=== PATIENT | male | born 1950 | race Caucasian/White ===

== ENCOUNTER → 2017-11-13 14:41 | Outpatient (POV) | payer MEDICARE, SELFPAY ==
[2017-11-13 15:10] VITALS: BP 172/101; PULSE 88; RESP 20; TEMP 36.7; O2SAT 97
--- NOTE | 2017-11-14 08:43 | HMH.PMCON ---
Assessment and Plan (1) Piriformis syndrome Current visit: Yes Status: Chronic Category: Medical Code(s): G57.00 - Lesion of sciatic nerve, unspecified lower limb (2) Sacroiliitis Current visit: Yes Status: Chronic Category: Medical Code(s): M46.1 - Sacroiliitis, not elsewhere classified (3) Degenerative joint disease (DJD) of lumbar spine Current visit: Yes Status: Chronic Category: Medical Code(s): M47.816 - Spondylosis without myelopathy or radiculopathy, lumbar region - Assessment and plan all Dx Assessment and Plan for all problems:: We will start off with a left SI and left piriformis injection. I believe that this may give the patient some good relief given his symptomology. Patient is not on any anticoagulation. Patient's tried and failed physical therapy, NSAIDs. Patient is also continuing stretching exercises at home. Patient wants to continue to be as functional as possible. I will follow-up with this patient after his injections. This note was dictated using voice recognition software and may contain errors or omissions HPI - Data of Consult Consult date: 11/13/17 Requesting Physician: Judith Jaime APRN Primary Care Provider: Adrien Ponce MD Family Provider: Adrien Ponce MD - Consult Narrative Reason for consult: Sciatica History of present illness: Mr. Shaw is a 67 year old male who presents for consultation in regards to his sciatica. Patient states had a low back injury in 1979 which precipitated intermittent pain of his lower left back and radiation down the left leg. Patient states lifting and bending make it worse while rest decreases his pain. Patient has been seen by neurosurgery previously. Patient does have an S1 impingement noted on his MRI. Patient was deemed not a surgical candidate. Patient has done physical therapy with minimal relief. Patient continues to do stretching. Patient has tried NSAIDs such as ibuprofen and muscle relaxers such as tizanidine. Patient rates his pain a 2 out of 10 today. Patient states that he is feeling fairly well today. He states that his pain is intermittent and sharp. Patient is interested in injective therapies to help with control of his pain. CC: Judith Jaime APRN [facility] History I have reviewed the patient's past medical history: Yes Medical History: Reports:: Hyperlipidemia, Hypertension Other Medical History: Reports: Arthritis Laterality Cases: Bilateral: Tonsillectomy - *Social History Smoking Status: Former smoker Tobacco Type: cigarettes Alcohol Intake: never Alcohol Intake Frequency:: a few times a week Substance Use Type: denies use Occupational Status: retired Housing: house Household Members: spouse - Psychiatric History Expresses thoughts of harming self/others: None Suicide Plan Description: No Plan *Family Hx:: Coronary Artery Disease Review of Systems - Review of Systems ROS General: no recent weight change, no fever, no sleep disturbances Respiratory: no cough, no shortness of air, no recurring pulmonary infections Cardiovascular/Peripheral Vascular: No chest pain, No palpitations, no edema, no shortness of breath. Gastrointestinal: no incontinence, normal bowel movements reported Genitourinary: no incontinence Musculoskeletal: Left SI joint pain, left leg pain Psychiatric: normal mood/ affect, [denies depression], [denies anxiety] Neurological: [denies weakness in extremities], [denies balance issues] Meds Home Medications Medication Instructions Recorded Confirmed Type aspirin 81 mg tablet,delayed 81 mg PO ONCE 08/07/17 History release diltiazem ER (XR/XT) 240 mg 240 mg PO ONCE 08/28/17 History capsule,extended release 24 hr, controlled fexofenadine 180 mg tablet 180 mg PO Q24H 08/28/17 History fluticasone 50 mcg/actuation nasal 50 mcg INTRANASAL ONCE 08/28/17 History spray,suspension losartan 100 1 tab PO ONCE 08/28/17 History mg-
--- NOTE | 2017-11-14 08:46 | P.CONS_ITS ---
Assessment and Plan (1) Piriformis syndrome Current visit: Yes Status: Chronic Category: Medical Code(s): G57.00 - Lesion of sciatic nerve, unspecified lower limb (2) Sacroiliitis Current visit: Yes Status: Chronic Category: Medical Code(s): M46.1 - Sacroiliitis, not elsewhere classified (3) Degenerative joint disease (DJD) of lumbar spine Current visit: Yes Status: Chronic Category: Medical Code(s): M47.816 - Spondylosis without myelopathy or radiculopathy, lumbar region - Assessment and plan all Dx Assessment and Plan for all problems:: We will start off with a left SI and left piriformis injection. I believe that this may give the patient some good relief given his symptomology. Patient is not on any anticoagulation. Patient's tried and failed physical therapy, NSAIDs. Patient is also continuing stretching exercises at home. Patient wants to continue to be as functional as possible. I will follow-up with this patient after his injections. This note was dictated using voice recognition software and may contain errors or omissions HPI - Data of Consult Consult date: 11/13/17 Requesting Physician: Judith Jaime APRN Primary Care Provider: Adrien Ponce MD Family Provider: Adrien Ponce MD - Consult Narrative Reason for consult: Sciatica History of present illness: Mr. Shaw is a 67 year old male who presents for consultation in regards to his sciatica. Patient states had a low back injury in 1979 which precipitated intermittent pain of his lower left back and radiation down the left leg. Patient states lifting and bending make it worse while rest decreases his pain. Patient has been seen by neurosurgery previously. Patient does have an S1 impingement noted on his MRI. Patient was deemed not a surgical candidate. Patient has done physical therapy with minimal relief. Patient continues to do stretching. Patient has tried NSAIDs such as ibuprofen and muscle relaxers such as tizanidine. Patient rates his pain a 2 out of 10 today. Patient states that he is feeling fairly well today. He states that his pain is intermittent and sharp. Patient is interested in injective therapies to help with control of his pain. CC: Judith Jaime APRN [facility] History I have reviewed the patient's past medical history: Yes Medical History: Reports:: Hyperlipidemia, Hypertension Other Medical History: Reports: Arthritis Laterality Cases: Bilateral: Tonsillectomy - *Social History Smoking Status: Former smoker Tobacco Type: cigarettes Alcohol Intake: never Alcohol Intake Frequency:: a few times a week Substance Use Type: denies use Occupational Status: retired Housing: house Household Members: spouse - Psychiatric History Expresses thoughts of harming self/others: None Suicide Plan Description: No Plan *Family Hx:: Coronary Artery Disease Review of Systems - Review of Systems ROS General: no recent weight change, no fever, no sleep disturbances Respiratory: no cough, no shortness of air, no recurring pulmonary infections Cardiovascular/Peripheral Vascular: No chest pain, No palpitations, no edema, no shortness of breath. Gastrointestinal: no incontinence, normal bowel movements reported Genitourinary: no incontinence Musculoskeletal: Left SI joint pain, left leg pain Psychiatric: normal mood/ affect, [denies depression], [denies anxiety] Neurological: [denies weakness in extremities], [denies balance issues] Meds Home Medications Medication Ins
== END ==
PROVIDERS: Family Provider Family Medicine; PCP Family Medicine; Visit Provider Clinical Nurse Specialist Family Health
DX: M46.1 Sacroiliitis, not elsewhere classified (principal); M47.816 Spondylosis without myelopathy or radiculopathy, lumbar region; G57.00 Lesion of sciatic nerve, unspecified lower limb
CPT/HCPCS: 99202; 99212

== ENCOUNTER → 2018-01-09 09:04 | Outpatient (POV) | payer MEDICARE, SELFPAY ==
[2018-01-09 09:20] VITALS: BP 153/79; PULSE 59; RESP 18; O2SAT 97; BMI 29.0
--- NOTE | 2018-01-09 09:44 | P.CONS_ITS ---
[facility] Pain Management SOAP Note Subjective:: Patient is a pleasant 67-year-old white male left-sided hip pain. Patient is following up after left SI joint injection and left piriformis syndrome. Patient states he is pain is a 0 out of 10 today. Patient has done extremely well after this injection. He rates 90-100% pain relief of his symptoms. Patient is much more functional. ROS General: no recent weight change, no fever, no sleep disturbances Respiratory: no cough, no shortness of air, no recurring pulmonary infections Cardiovascular/Peripheral Vascular: No chest pain, No palpitations, no edema, no shortness of breath. Gastrointestinal: no incontinence, normal bowel movements reported Genitourinary: no incontinence Musculoskeletal: Left hip Psychiatric: normal mood/ affect Neurological: [denies weakness in extremities], [denies balance issues] Objective:: Physical Exam General: Alert and oriented x3, no acute distress, pleasant and cooperative, [ on room air] Lungs: Resps E/U, Symmetrical chest expansion, \ Eyes: PERRL Musculoskeletal: Flexion and extension of lumbar spine somewhat guarded secondary to pain, deep tendon reflexes normal, strength in upper and lower extremities [5/5], normal gait noted Neurological: speech clear, canvassing manager equal, no gross sensory deficits Assessment:: Sacroiliitis, piriformis syndrome Plan:: We will follow-up with this patient on an as-needed basis. Patient is going to continue his anti-inflammatory regimen and stretching therapies. This note was dictated using voice recognition software and may contain errors or omissions
== END ==
PROVIDERS: Family Provider Family Medicine; PCP Family Medicine; Visit Provider Clinical Nurse Specialist Family Health
DX: M46.1 Sacroiliitis, not elsewhere classified (principal)
CPT/HCPCS: 99212

== ENCOUNTER → 2018-03-16 09:28 | Outpatient (CLI) | payer MEDICARE, SELFPAY ==
--- NOTE | 2018-03-16 09:49 | FL_ITS ---
EXAM: Barium swallow/esophagram. INDICATION: Patient with myasthenia gravis with dysphagia ITS.REASON: dysphagia ORDERING PHYSICIAN: Judy Peralta MD PATIENT AGE: 68 years COMPARISON: None TECHNIQUE: In the upright position the patient was observed to swallow barium in both the AP and lateral view. The cervical esophagus was examined under fluoroscopy with images obtained. The patient was then placed prone in the right anterior oblique position and was observed to swallow barium with Valsalva technique . Incidental note made of moderate carotid artery calcifications. FLUOROSCOPY TIME: 50 seconds FINDINGS: There was no evidence of aspiration. There was normal peristalsis. No filling defects or mucosal abnormalities. No masses or strictures. There is some minimal indentation upon the posterior aspect of the cervical esophagus at the C5-C6 and C6 7 level from endplate osteophytes IMPRESSION: 1. Mild indentation on the posterior aspect of the cervical esophagus from osteophytes at C5-C6 and C6-C7 2. Otherwise negative barium swallow. 3. Carotid artery calcification
[2018-03-16 10:08] LABS: Alanine Aminotransferase 33 U/L (12-78); Albumin Level 3.8 gm/dL (3.4-5.0); Albumin/Globulin Ratio 1.1 (1.1-1.8); Alkaline Phosphatase 130 U/L (46-116); Anion Gap 8.4 mEq/L (5-15); Aspartate Amino Transferase 16 U/L (15-37); Bilirubin,Total 1.3 mg/dL (0.2-1.0); Blood Urea Nitrogen 17 mg/dL (7-18); Calcium 9.2 mg/dL (8.5-10.1); Carbon Dioxide 35 mmol/L (21.0-32.0); Chloride 101 mmol/L (98-107); Creatinine,Serum 1.29 mg/dL (0.70-1.30); Estimated Glomerular Filt Rate 55 ml/min (>60); GFR (African American) 67 ML/MIN (>60); Globulin 3.5 gm/dl (1.3-3.2); Glucose 94 mg/dL (74-106); Potassium 4.4 mmoL/L (3.5-5.1); Sodium 140 mmol/L (136-145); Total Protein,Serum 7.3 gm/dL (6.4-8.2)
[2018-03-16 10:34] LABS: Basophils # 0.1 K/mm3 (0-0.2); Basophils % 0.4 % (0.1-2.0); Eosinophils # 0.1 K/mm3 (0.0-0.4); Eosinophils % 1.2 % (0.1-12.0); Lymphocytes # 3.1 K/mm3 (0.7-4.5); Lymphocytes % 28.5 K/mm3 (10-50); Mean Corpuscular HGB Conc 33.4 g/dL (31.8-35.4); Mean Corpuscular Volume 92.9 fl (80-94); Mean Platelet Volume 8.7 fl (7.4-10.4); Monocytes # 0.9 K/mm3 (0.1-1.0); Monocytes % 8.3 % (1.7-9.3); Neutrophils # 6.8 K/mm3 (1.8-7.8); Neutrophils % 61.5 % (37.0-80.0); Platelet Count 297 K/mm3 (142-424); Red Blood Count 5.92 M/mm3 (4.60-6.20); Red Cell Distribution Width 13.9 % (11.5-17.5)
[2018-03-16 11:15] LABS: Hemoglobin 18.4 g/dL (14.1-18.0)
== END ==
PROVIDERS: Family Provider Family Medicine; PCP Family Medicine; Visit Provider Specialist
DX: G70.00 Myasthenia gravis without (acute) exacerbation (principal); R13.10 Dysphagia, unspecified
CPT/HCPCS: 36415; 74220; 80053; 85025

== ENCOUNTER → 2018-07-02 12:52 | Outpatient (CLI) | payer MEDICARE, SELFPAY | PROVIDERS: Visit Provider Specialist | DX: N39.0 Urinary tract infection, site not specified (principal) | CPT/HCPCS: 87086 ==

== ENCOUNTER 2018-07-11 09:54 | Outpatient (CLI) | payer MEDICARE, SELFPAY ==
[2018-07-11 10:11] VITALS: BP 159/82; PULSE 94; RESP 18; TEMP 36.5; O2SAT 98
[2018-07-11 10:41] VITALS: BP 142/92; PULSE 89; RESP 18; O2SAT 97
[2018-07-11 11:11] VITALS: BP 140/80; PULSE 91; RESP 18; O2SAT 97
[2018-07-11 11:41] VITALS: BP 145/89; PULSE 87; RESP 18; O2SAT 98
[2018-07-11 12:11] VITALS: BP 147/84; PULSE 84; RESP 18; O2SAT 97
[2018-07-11 12:28] VITALS: BP 151/90; PULSE 81; RESP 18; O2SAT 97
== END 2018-07-11 12:30 | disposition home or self-care (01) ==
LOC: INF 09:54
PROVIDERS: Visit Provider Specialist
DX: G70.00 Myasthenia gravis without (acute) exacerbation (principal)
CPT/HCPCS: 96365; 96366; J1459

== ENCOUNTER 2018-10-10 08:15 | Outpatient (CLI) | payer MEDICARE, SELFPAY ==
[2018-10-10 08:30] VITALS: BP 163/87; PULSE 86; RESP 18; TEMP 36.6; O2SAT 98
== END 2018-10-10 08:45 | disposition home or self-care (01) ==
LOC: INF 08:15
PROVIDERS: Visit Provider Specialist
DX: G70.00 Myasthenia gravis without (acute) exacerbation (principal)

== ENCOUNTER 2018-10-11 12:46 | Outpatient (CLI) | payer MEDICARE, SELFPAY ==
[2018-10-11] VITALS (7 sets, daily range): BP systolic 110–160; BP diastolic 66–90; PULSE 58–81; RESP 18–20; TEMP 36.8; O2SAT 94–98
--- NOTE | 2018-10-11 14:31 | PC.NURSE ---
premedicated pt at 1300 with 50mg IV diphenhydromine and 100mg IV hydrocortisone.
== END 2018-10-11 16:05 | disposition home or self-care (01) ==
LOC: INF 12:46
PROVIDERS: Visit Provider Specialist
DX: G70.01 Myasthenia gravis with (acute) exacerbation (principal)
CPT/HCPCS: 96365; 96366; J1459

== ENCOUNTER → 2019-01-09 08:25 | Outpatient (CLI) | payer MEDICARE, SELFPAY ==
[2019-01-09] VITALS (14 sets, daily range): BP systolic 111–176; BP diastolic 72–89; PULSE 69–85; RESP 16–18; TEMP 36.6–36.8; O2SAT 93–97
== END ==
PROVIDERS: Visit Provider Psychiatry & Neurology Clinical Neurophysiology
DX: G70.00 Myasthenia gravis without (acute) exacerbation (principal)
CPT/HCPCS: 96365; 96366; J1459

== ENCOUNTER → 2019-02-07 15:20 | Outpatient (CLI) | payer MEDICARE, SELFPAY | PROVIDERS: Visit Provider Urology | DX: R39.89 Other symptoms and signs involving the genitourinary system (principal) | CPT/HCPCS: 87086; 87088; 87186 ==

== ENCOUNTER 2019-03-11 09:03 | Outpatient (CLI) | payer MEDICARE, SELFPAY ==
[2019-03-11] VITALS (7 sets, daily range): BP systolic 135–168; BP diastolic 77–89; PULSE 62–72; RESP 18; O2SAT 94–95
== END 2019-03-11 12:55 | disposition home or self-care (01) ==
LOC: INF 09:03
PROVIDERS: Visit Provider Psychiatry & Neurology Clinical Neurophysiology
DX: G70.00 Myasthenia gravis without (acute) exacerbation (principal)
CPT/HCPCS: 96365; 96366; 96374; J1459

== ENCOUNTER → 2019-04-08 09:31 | Outpatient (POV) | payer MEDICARE, SELFPAY ==
[2019-04-08 10:15] VITALS: BP 183/98; PULSE 87; RESP 18; O2SAT 98; BMI 29.4
--- NOTE | 2019-04-08 10:33 | P.CONS_ITS ---
[facility] Pain Management SOAP Note Subjective:: Patient is a pleasant 69-year-old white male who presents today for follow-up. Patient had a left SI joint injection and left piriformis injection back in 2018. Patient is done extremely well since then his pain just beginning to return several weeks ago. He rates his pain today 3 out of 10. Patient had 90 to 100% pain relief for a year. Patient is continuing home stretching program. He is on anti-inflammatories. ROS General: no recent weight change, no fever, no sleep disturbances Respiratory: no cough, no shortness of air, no recurring pulmonary infections Cardiovascular/Peripheral Vascular: No chest pain, No palpitations, no edema, no shortness of breath. Gastrointestinal: no incontinence, normal bowel movements reported Genitourinary: no incontinence Musculoskeletal: Left hip pain Psychiatric: normal mood/ affect Neurological: [denies weakness in extremities], [denies balance issues] Objective:: Physical Exam General: Alert and oriented x3, no acute distress, pleasant and cooperative, [on room air] Lungs: Resps E/U, Symmetrical chest expansion, Eyes: PERRL Musculoskeletal: Flexion and extension of bar spine somewhat guarded secondary to pain, deep tendon reflexes normal, strength in upper and lower extremities [5/5], [abnormal gait noted] point tenderness over left piriformis muscle, positive Laurie test positive Shahid's test and positive SI joint compression test on the left side Neurological: speech clear, fuel oil clerk equal, no gross sensory deficits Assessment:: Sacroiliitis, piriformis syndrome, myofascial pain Plan:: We will schedule him for a left SI joint injection left piriformis injection given the efficacy in the past I believe it would be beneficial. Patient has been instructed to call the office if he has any issues prior to his next appointment. Dr. Martinez has reviewed this note and agrees with this plan of care. This note was dictated using voice recognition software and may contain errors or omissions [facility] History Medical History: Reports:: Hyperlipidemia, Hypertension Denies:: Cancer, Diabetes Mellitus Type 1, Diabetes Mellitus Type 2, Internal Pacemaker, MRSA, Seizures *Have you ever received a pneumonia vaccine?: Yes *Have you received a flu vaccine this season?: Yes Other Medical History: Reports: Arthritis, Other Laterality Cases: Other Surgeries: Yes: Colonoscopy, Other. No: Pacemaker Amputation: No Fractures: No - *Social History Smoking Status: Former smoker Tobacco Type: cigarettes Alcohol Intake: current Alcohol Intake Frequency:: a few times a week Substance Use Type: denies use *Occupational Status:: other Housing: house Household Members: spouse *Travel in the last 8 weeks: None Family Hx:: Coronary Artery Disease
== END ==
PROVIDERS: PCP Family Medicine; Visit Provider Clinical Nurse Specialist Family Health
DX: M46.1 Sacroiliitis, not elsewhere classified (principal); M79.18 Myalgia, other site; G57.00 Lesion of sciatic nerve, unspecified lower limb
CPT/HCPCS: 99212

== ENCOUNTER 2019-05-10 08:00 | Outpatient (CLI) | payer MEDICARE, SELFPAY ==
[2019-05-10 08:08] VITALS: BMI 29.9
[2019-05-10 09:15] VITALS: BP 131/78; PULSE 72; RESP 18
[2019-05-10 09:30] VITALS: BP 109/71; PULSE 81; RESP 18
[2019-05-10 09:45] VITALS: BP 126/82; PULSE 75; RESP 18
[2019-05-10 10:00] VITALS: BP 134/80; PULSE 73; RESP 18
[2019-05-10 10:30] VITALS: BP 137/89; PULSE 73; RESP 18
== END 2019-05-10 10:30 | disposition home or self-care (01) ==
LOC: INF 08:06
PROVIDERS: Visit Provider Psychiatry & Neurology Clinical Neurophysiology
DX: G70.00 Myasthenia gravis without (acute) exacerbation (principal)
CPT/HCPCS: 96365; J1459

== ENCOUNTER → 2019-05-20 10:57 | Outpatient (POV) | payer MEDICARE, SELFPAY ==
[2019-05-20 12:15] VITALS: BP 151/91; PULSE 87; RESP 18; O2SAT 98; BMI 29.9
--- NOTE | 2019-05-20 12:47 | HMH.PAINSOAP ---
[facility] Pain Management SOAP Note Subjective:: Patient is a pleasant 69-year-old white male who presents today for follow-up after left SI joint injection. Patient still having no relief of his symptoms. Patient's pain is in his low back radiating down his left leg. He rates his pain a 3 out of 10. However gets worse throughout the day. He is continuing a home stretching program and anti-inflammatories. Patient is not on any anticoagulation therapy. We discussed potential epidural steroid injections. Patient would like to move forward with this. ROS General: no recent weight change, no fever, no sleep disturbances Respiratory: no cough, no shortness of air, no recurring pulmonary infections Cardiovascular/Peripheral Vascular: No chest pain, No palpitations, no edema, no shortness of breath. Gastrointestinal: no new onset incontinence, normal bowel movements reported Genitourinary: no new onset incontinence Musculoskeletal: Back pain, leg pain Psychiatric: normal mood/ affect, Neurological: [denies new onset weakness in extremities], [denies new onset balance issues] Objective:: Physical Exam General: Alert and oriented x3, no acute distress, pleasant and cooperative, [on room air] Lungs: Resps E/U, Symmetrical chest expansion, Eyes: PERRL Musculoskeletal: Flexion and extension of lumbar spine somewhat guarded secondary to pain, deep tendon reflexes normal, strength in upper and lower extremities [5/5], slightly antalgic gait noted, positive left straight leg raise test at 30 degrees Neurological: speech clear, tile sorter equal, no gross sensory deficits Assessment:: Degenerative disc disease lumbar spine lumbar radiculopathy, sacroiliitis Plan:: We will schedule a L4-L5 lumbar epidural steroid injection given his symptomology believe it would be beneficial. Patient's been instructed to call the office if he has any issues prior to his next appointment. Dr. Martinez has reviewed this note and agrees with this plan of care. This note was dictated using voice recognition software and may contain errors or omissions [facility] History I have reviewed the patient's past medical history: Yes Medical History: Reports:: Hyperlipidemia, Hypertension Denies:: Cancer, Diabetes Mellitus Type 1, Diabetes Mellitus Type 2, Internal Pacemaker, MRSA, Seizures *Have you ever received a pneumonia vaccine?: No *Have you received a flu vaccine this season?: No Other Medical History: Reports: Arthritis, Other Laterality Cases: Left: Other, Bilateral: Tonsillectomy Other Surgeries: Yes: Colonoscopy, Other. No: Pacemaker Amputation: No Fractures: No - *Social History Smoking Status: Never smoker Tobacco Type: cigarettes Alcohol Intake: current Alcohol Intake Frequency:: a few times a month Substance Use Type: denies use *Occupational Status:: other Housing: house Household Members: spouse *Travel in the last 8 weeks: None Family Hx:: Coronary Artery Disease
== END ==
PROVIDERS: PCP Family Medicine; Visit Provider Clinical Nurse Specialist Family Health
DX: M51.16 Intervertebral disc disorders with radiculopathy, lumbar region (principal); M46.1 Sacroiliitis, not elsewhere classified
CPT/HCPCS: 99212

== ENCOUNTER 2019-07-04 08:55 | Outpatient (CLI) | payer MEDICARE, SELFPAY ==
[2019-07-04] VITALS (15 sets, daily range): BP systolic 113–147; BP diastolic 59–85; PULSE 73–89; RESP 18–20; O2SAT 96
== END 2019-07-04 13:30 | disposition home or self-care (01) ==
LOC: INF 09:05
PROVIDERS: Visit Provider Psychiatry & Neurology Clinical Neurophysiology
DX: G70.00 Myasthenia gravis without (acute) exacerbation (principal)
CPT/HCPCS: 96365; 96366; 96375; J1459

== ENCOUNTER → 2019-07-25 13:26 | Outpatient (CLI) | payer MEDICARE, SELFPAY ==
--- NOTE | 2019-07-25 13:26 | MR_ITS ---
PROCEDURE: MR CERVICAL SPINE WO CON CLINICAL INDICATION: right upper ext weakness-evaluation for myelopathy Right arm weakness, peripheral neuropathy, headache, bilateral arm weakness and pain COMPARISON: No exams were available for comparison TECHNIQUE: Standard multiplanar multiecho sequences are performed without contrast. 3-D MIP and myelographic images are also rendered and reviewed FINDINGS: A there is a moderate degree of motion artifact which obscures fine detail and is present on every sequence. There is straightening of the cervical lordosis which could be due to patient positioning or muscle spasm. Cranial cervical junction has an unremarkable appearance. C2-C3: Unremarkable. C3-C4: Mild degenerative disc disease with mild bulging disc and uncovertebral hypertrophy with mild bilateral foraminal narrowing slightly greater on the right compared to the left. There is minimal central disc protrusion C4-C5: Mild degenerative disc disease C5-C6: Degenerative disc disease with bulging disc and small central disc protrusion abutting the cord anteriorly with canal stenosis of 9 mm. C6-C7: Degenerate disc disease with bulging disc with canal stenosis of 8 mm. The disc does abut the spinal cord without significant flattening. C7-T1: Unremarkable. No extruded herniated disc. No fracture or dislocation. The spinal cord has an unremarkable signal intensity. IMPRESSION: 1. C3-C4: Mild degenerative disc disease with mild bulging disc and uncovertebral hypertrophy with mild bilateral foraminal narrowing slightly greater on the right compared to the left. There is minimal central disc protrusion 2. C5-C6: Degenerative disc disease with bulging disc and small central disc protrusion abutting the cord anteriorly with canal stenosis of 9 mm. 3. C6-C7: Degenerate disc disease with bulging disc with canal stenosis of 8 mm. The disc does abut the spinal cord without significant flattening. 4. No extruded herniated disc. Dictated by: Al Hernandez MD 07/26/2019 14:53 Electronically signed by Al Hernandez MD in [place] 07/26/2019 14:53
--- NOTE | 2019-07-25 13:26 | MR_ITS ---
PROCEDURE: MR BRACHIAL PLEXUS RT WO CON CLINICAL INDICATION: right brachial plexus- right arm weakness Right arm weakness with peripheral neuropathy, bilateral arm weakness, tingling in left arm, weakness worse on the right COMPARISON: [facility] CT CHEST W/ CONTRAST from 07/05/2016 TECHNIQUE: Routine multiplanar multi echo sequences are performed without gadolinium enhancement. FINDINGS: There is a mild degree of motion artifact which somewhat obscures fine detail. No obvious mass or abnormal fluid collection in the region of the brachial plexus. No obvious enlarged nerve roots. Please see cervical spine MRI report for abnormalities of the cervical spine better demonstrated on that exam. IMPRESSION: Negative MRI brachial plexus Dictated by: Al Hernandez MD 08/02/2019 07:14 Electronically signed by Al Hernandez MD in [place] 08/02/2019 07:14
== END ==
PROVIDERS: PCP Family Medicine; Visit Provider Specialist
DX: G62.9 Polyneuropathy, unspecified (principal); G70.00 Myasthenia gravis without (acute) exacerbation; R29.898 Other symptoms and signs involving the musculoskeletal system; G95.9 Disease of spinal cord, unspecified
CPT/HCPCS: 72141; 73218; 76376

== ENCOUNTER → 2019-07-29 15:08 | Outpatient (POV) | payer MEDICARE, SELFPAY ==
[2019-07-29 15:41] VITALS: BP 160/98; PULSE 91; RESP 18; O2SAT 99; BMI 29.8
--- NOTE | 2019-07-30 08:30 | HMH.PAINSOAP ---
[facility] Pain Management SOAP Note Subjective:: Patient is a very pleasant 69-year-old white male who we are treating for low back pain with lumbar radiculopathy. Patient is status post several injections he is getting no relief from his injections. Patient is continuing to have issues with neuropathy in his bilateral legs. He rates his pain a 5 out of 10 he is becoming weaker and unable to do things. He has completed physical therapy in the past. He is failed medications and anti-inflammatories and injective therapy for over 6 months. Patient states that he has swelling in his bilateral lower extremities along with color changes and temperature changes. Patient is finding it hard to walk at times. He is now utilizing a walker. Patient has a nerve conduction study that was abnormal. ROS General: no recent weight change, no fever, no sleep disturbances Respiratory: no cough, no shortness of air, no recurring pulmonary infections Cardiovascular/Peripheral Vascular: No chest pain, No palpitations, no edema, no shortness of breath. Gastrointestinal: no new onset incontinence, normal bowel movements reported Genitourinary: no new onset incontinence Musculoskeletal: Back pain, leg pain Psychiatric: normal mood/ affect, Neurological: Weakness in lower extremities, neuropathy, [denies new onset balance issues] Objective:: Physical Exam General: Alert and oriented x3, no acute distress, pleasant and cooperative, [on room air] Lungs: Resps E/U, Symmetrical chest expansion, Eyes: PERRL Musculoskeletal: Flexion and extension of lumbar spine somewhat guarded secondary to pain, deep tendon reflexes normal, strength in upper and lower extremities [5/5], [abnormal gait noted] Skin: Bilateral lower extremities are swollen with 1+ edema also noted above color change in the skin from the upper extremities Neurological: speech clear, taper printed circuit layout equal, no gross sensory deficits Assessment:: Degenerative disc disease lumbar spine with lumbar radiculopathy, CRPS type II, neuropathy Plan:: Patient and I discussed a neurostimulator trial he would like to move forward with this. We will get a psychological evaluation to determine if he is a good candidate for this therapy. I will follow-up with him after this reassess his symptoms at that time he is been instructed to call the office if he has any issues prior to his next appointment. Dr. Martinez has reviewed this note and agrees with this plan of care. This note was dictated using voice recognition software and may contain errors or omissions [facility] History I have reviewed the patient's past medical history: Yes Medical History: Reports:: Hyperlipidemia, Hypertension Denies:: Cancer, Diabetes Mellitus Type 1, Diabetes Mellitus Type 2, Internal Pacemaker, MRSA, Seizures *Have you ever received a pneumonia vaccine?: Yes *Have you received a flu vaccine this season?: Yes Other Medical History: Reports: Arthritis, Other Laterality Cases: Left: Other, Bilateral: Tonsillectomy Other Surgeries: Yes: Colonoscopy, Other. No: Pacemaker Amputation: No Fractures: No - *Social History Smoking Status: Never smoker Tobacco Type: cigarettes Alcohol Intake: never Alcohol Intake Frequency:: a few times a month Substance Use Type: denies use *Occupational Status:: other Housing: house Household Members: spouse *Travel in the last 8 weeks: None Family Hx:: Coronary Artery Disease
== END ==
PROVIDERS: PCP Family Medicine; Visit Provider Clinical Nurse Specialist Family Health
DX: M51.16 Intervertebral disc disorders with radiculopathy, lumbar region (principal); G57.73 Causalgia of bilateral lower limbs; G62.9 Polyneuropathy, unspecified
CPT/HCPCS: 99212

== ENCOUNTER → 2019-08-05 16:29 | Outpatient (CLI) | payer MEDICARE, SELFPAY ==
[2019-08-05 18:29] LABS: Alanine Aminotransferase 40 U/L (12-78); Albumin Level 3.6 gm/dL (3.4-5.0); Albumin/Globulin Ratio 1.4 (1.1-1.8); Alkaline Phosphatase 99 U/L (46-116); Anion Gap 12.2 mEq/L (5-15); Aspartate Amino Transferase 24 U/L (15-37); Bilirubin,Total 0.6 mg/dL (0.2-1.0); Blood Urea Nitrogen 24 mg/dL (7-18); Calcium 9.2 mg/dL (8.5-10.1); Carbon Dioxide 31 mmol/L (21.0-32.0); Chloride 102 mmol/L (98-107); Creatine Kinase 73 U/L (39-308); Creatinine,Serum 1.06 mg/dL (0.70-1.30); Estimated Glomerular Filt Rate 69 ml/min (>60); GFR (African American) 83 ML/MIN (>60); Globulin 2.6 gm/dl (1.3-3.2); Glucose 108 mg/dL (74-106); Potassium 4.2 mmoL/L (3.5-5.1); Sodium 141 mmol/L (136-145); Total Protein,Serum 6.2 gm/dL (6.4-8.2)
== END ==
PROVIDERS: Visit Provider Specialist
DX: G70.00 Myasthenia gravis without (acute) exacerbation (principal); R06.09 Other forms of dyspnea; R60.9 Edema, unspecified
CPT/HCPCS: 36415; 80053; 82550

== ENCOUNTER → 2019-08-07 14:45 | Outpatient (CLI) | payer MEDICARE, SELFPAY ==
--- NOTE | 2019-08-07 14:45 | CA_ITS ---
APPROVED REPORT EXAM: Comprehensive 2D, Doppler, and color-flow Echocardiogram Consulting Intern: Bre Díaz RT(R) Ht: 5 ft 11 in Wt: 219lbs BSA: 2.19 BP: 137/87 mmHg Indications: Edema, HTN, MARINA, hyperlipidemia, famly hx of HD, h/o myasthenia gravis 2D Dimensions LVOT 2.01 cm (M/F) 1.5-2.5 M-Mode Dimensions RVDd 1.49 cm (0.9-2.6) LVDd 5.58 cm (3.5-5.7) LVDs 4.22 cm (3.5-5.7) IVSd 0.98 cm (0.6-1.1) PWd 0.89 cm (0.6-1.1) EF (Teich) 47.80% FS 24.40% EDV (Teich) 152.40 mL ESV (Teich) 79.50 mL LV Diastology E/A Ratio 0.96 Mitral Valve MV A Velocity 70.00 (40-130 cm/s) Left Ventricle Left atrium is mildly enlarged, left ventricle is normal size, mild concentric left ventricular hypertrophy, visually estimated ejection fraction 55% with no regional wall motion abnormality. Grade 1 diastolic dysfunction seen without tissue Doppler evidence of raise left atrial pressure. Right Ventricle Right atrium right ventricular normal size and contractility. Aortic Valve Aortic valve is thickened and calcified leaflet chordae display good mobility, there is no aortic stenosis, there is mild aortic insufficiency. Mitral Valve Mitral valve is grossly normal, there is mild mitral regurgitation. Tricuspid Valve Tricuspid valve is grossly normal, there is mild tricuspid regurgitation. Pulmonic Valve Pulmonic valve is poorly visualized. Great Vessels Aortic root is normal size. Pericardium No significant pericardial effusion noted. Conclusion 1. Mildly enlarged left atrium, normal left ventricular size, mild concentric left ventricular hypertrophy, visually estimated ejection fraction 55% with no regional wall motion abnormality, grade 1 diastolic dysfunction seen without tissue Doppler evidence of raise left atrial pressure. 2. Thickened and calcified aortic valve without aortic stenosis, there is mild aortic insufficiency. 3. Mild mitral and tricuspid regurgitation. 4. No significant pericardial effusion noted. Electronically signed by : Mauricio Louis, 08/08/2019 14:53:59
== END ==
PROVIDERS: PCP Family Medicine; Visit Provider Specialist
DX: G70.00 Myasthenia gravis without (acute) exacerbation (principal); R06.09 Other forms of dyspnea; R60.9 Edema, unspecified
CPT/HCPCS: 93306

== ENCOUNTER → 2019-08-15 11:42 | Outpatient (CLI) | payer MEDICARE, SELFPAY ==
--- NOTE | 2019-08-15 | CA_ITS ---
APPROVED REPORT Exam: Pharmacologic Technologist: Sonja Ferreira, Ht: 6 ft 0 in Wt: 220 lbs BSA: 2.22 m2 HR: 78 bpm BP: 159/95 mmHg Rhythm: NSR,PRWP Indications: Dyspnea Medical History Medical History: HTN, Hyperlipidemia Medications: Losartan,,,,, Carvedilol,,,,, Naproxen,,,,, Probiotic,,,,, AtorvaASTATIN,,,,, Fexofenadine,,,,, PYRIDOSTIGMINE,,,,, PredOSINE,,,,, MyCophendate,,,,, Allergies: AMLODIPINE,DILTIAZEM Cardiac Risk Factors: FHX of CAD Stress Test Details Test: LEXISCAN HR Resting HR: 76 bpm Max Heart Rate (APMHR): 149 bpm Max HR Achieved: 102 bpm Target HR (85% APMHR): 126 bpm % of APMHR: 68 Recovery HR: 88 bpm BP Resting BP: 159.0/95.0 mmHg Max BP: 159.0/95.0 mmHg Recovery BP: 132.0/83.0 mmHg ECG Resting ECG: NSR,PRWP Clinical Reason for Termination: Completed Protocol Exercise duration: 04:01 min Highest Stage Achieved: Stress ECG Conclusion LEXISCAN INFUSION COMPLETED. NO CHEST PAIN. RARE PVC. <1.5 ST SEGMENT CHANGES. NON-DIAGNOSTIC TEST . Electronically signed by : Mauricio Louis, 08/15/2019 15:26:37
--- NOTE | 2019-08-15 11:42 | NM_ITS ---
APPROVED REPORT Exam: Nuclear Stress Test Indication: SOB, HTN, High cholesterol, Family history Patient Location: Outpatient Stress Tech: Amberly Rodnkson NC Tech:JOSE C Guzman RT(R)(N) Ht: 6 ft 0 in Wt: 220 lbs HR: 78 bpm BP: 159/95 mmHg BSA: 2.22 m2 History: SOB, HTN, High cholesterol, Family history Procedure: Patient received a 0.4 mg of intravenous Lexiscan, resting heart rate 78 bpm, resting blood pressure 159/95 mmHg, with Lexiscan maximum heart rate achived was 85 bpm which is Less than 85 % of the maximum predicted heart rate and blood pressure was 127/82 mmHg. With Lexiscan, patient denied any complaint of chest pain. Electrocardiogram Resting electrocardiogram showed sinus rhythm, with Lexiscan there is less than 1.[address] segment depression noted from the baseline EKG. The EKG portion of the Lexiscan Myoview is nondiagnostic. Cardiac Stress and Resting SPECT Images: Cardiac Stress and Resting SPECT images were obtained using technetium 99m Myoview 32.9 mCi stress and 10.56 mCi at rest. Gated SPECT with analysis of segmental wall motion and calculation of the ejection fraction also done. Cardiac stress and resting SPECT images show uniform myocardial activity without segmental perfusion abnormality, computer derived ejection fraction is 39%, which is likely underestimation by gated SPECT. Visually estimated ejection fraction is approximately 50% with no regional wall motion abnormality. Right ventricle is normal size and contractility. Conclusion: 1. The EKG portion of the Lexiscan Myoview is nondiagnostic. 2. No scintigraphic evidence of reversible ischemia seen, computer derived ejection fraction 39% which is likely underestimation by gated SPECT. Visually estimated ejection fraction is approximately 50% with no regional wall motion abnormality. 3. Likely normal Lexiscan Myoview study. Electronically signed by : Mauricio Louis, 08/15/2019 15:29:20
--- NOTE | 2019-08-15 13:37 | HMH.ITSHM ---
Current Home Medications as stated by this patient Severiano Shaw or senior human resources representative. [] prednisone naproxen losartan carvedilol atorvastatin probiotic
== END ==
PROVIDERS: PCP Family Medicine; Visit Provider Nurse Practitioner Family
DX: E78.5 Hyperlipidemia, unspecified (principal); G70.00 Myasthenia gravis without (acute) exacerbation; I10 Essential (primary) hypertension; I34.0 Nonrheumatic mitral (valve) insufficiency; R06.09 Other forms of dyspnea; R60.9 Edema, unspecified
CPT/HCPCS: 78452; 93017; A9502; J2785

== ENCOUNTER → 2019-08-28 08:29 | Outpatient (CLI) | payer MEDICARE, SELFPAY ==
[2019-08-28] VITALS (11 sets, daily range): BP systolic 89–141; BP diastolic 53–74; PULSE 51–63; RESP 18; TEMP 36.7; O2SAT 97
[2019-08-28 09:17] LABS: Basophils % 0.5 % (0.1-2.0); Eosinophils # 0.1 K/mm3 (0.0-0.4); Hematocrit 44.1 % (42.0-52.0); Hemoglobin 14.4 g/dL (14.1-18.0); Lymphocytes # 1.9 K/mm3 (0.7-4.5); Lymphocytes % 25.1 % (10-50); Mean Corpuscular HGB Conc 32.6 g/dL (31.8-35.4); Mean Corpuscular Hemoglobin 30.7 pg (27.0-31.2); Mean Corpuscular Volume 94.2 fl (80-94); Mean Platelet Volume 8.9 fl (7.4-10.4); Monocytes # 0.5 K/mm3 (0.1-1.0); Neutrophils # 5.1 K/mm3 (1.8-7.8); Neutrophils % 67.4 % (37.0-80.0); Platelet Count 321 K/mm3 (142-424); Red Blood Count 4.68 M/mm3 (4.60-6.20); Red Cell Distribution Width 14.2 % (11.5-17.5); White Blood Count 7.5 K/mm3 (4.8-10.8)
[2019-08-28 10:12] LABS: Anion Gap 9.3 mEq/L (5-15); Blood Urea Nitrogen 19 mg/dL (7-18); Calcium 8.9 mg/dL (8.5-10.1); Carbon Dioxide 34 mmol/L (21.0-32.0); Chloride 108 mmol/L (98-107); Creatinine,Serum 1.06 mg/dL (0.70-1.30); Estimated Glomerular Filt Rate 69 ml/min (>60); GFR (African American) 83 ML/MIN (>60); Glucose 103 mg/dL (74-106); Potassium 4.3 mmoL/L (3.5-5.1); Sodium 147 mmol/L (136-145)
== END ==
PROVIDERS: Clinical Nurse Specialist Family Health; Visit Provider Psychiatry & Neurology Clinical Neurophysiology
DX: G70.00 Myasthenia gravis without (acute) exacerbation (principal)
CPT/HCPCS: 36415; 80048; 85025; 96365; 96366; J1568

== ENCOUNTER → 2019-09-03 11:53 | Outpatient (POV) | payer MEDICARE, SELFPAY ==
[2019-09-03 12:04] VITALS: BP 156/86; PULSE 83; RESP 18; O2SAT 99; BMI 29.1
--- NOTE | 2019-09-03 12:24 | P.PCN_ITS ---
- Procedure Date: 09/03/19 Time: 12:24 Anesthesiologist:: Judith Jaime APRN Complications:: None Pre-procedure Diagnosis:: Degenerative disc disease lumbar spine lumbar radiculopathy, neuropathy, CRPS type II Post-procedure Diagnosis:: Same Indications for Procedure:: Patient is a very pleasant 69-year-old white male who we are treating for low back pain with lumbar radiculopathy. Patient is status post several injections he is getting no relief from his injections. Patient is continuing to have issues with neuropathy in his bilateral legs. He has completed physical therapy in the past. He is failed medications and anti-inflammatories and injective therapy for over 6 months. Patient states that he has swelling in his bilateral lower extremities along with color changes and temperature changes. Patient is finding it hard to walk at times. He is now utilizing a walker. Patient has a nerve conduction study that was abnormal. Patient is following up today for st im trial lead removal. Patient got over 90% relief of his symptomology. Overall he is done extremely well he does have an appropriate psychological evaluation we will move forward with a implant of a [employer] system ROS General: no recent weight change, no fever, no sleep disturbances Respiratory: no cough, no shortness of air, no recurring pulmonary infections Cardiovascular/Peripheral Vascular: No chest pain, No palpitations, no edema, no shortness of breath. Gastrointestinal: no new onset incontinence, normal bowel movements reported Genitourinary: no new onset incontinence Musculoskeletal: Back pain, leg pain Psychiatric: normal mood/ affect, Neurological: Weakness in lower extremities, neuropathy, [denies new onset balance issues] Objective:: Physical Exam General: Alert and oriented x3, no acute distress, pleasant and cooperative, [on room air] Lungs: Resps E/U, Symmetrical chest expansion, Eyes: PERRL Musculoskeletal: Flexion and extension of lumbar spine somewhat guarded secondary to pain, deep tendon reflexes normal, strength in upper and lower extremities [5/5], [abnormal gait noted] Skin: Bilateral lower extremities are swollen with 1+ edema also noted above color change in the skin from the upper extremities Procedure Details:: After informed consent was obtained the risk and benefits of the procedure were explained to the patient. Patient's vital signs were monitored with noninvasive blood pressure cuff and pulse oximeter. Patient's tape was removed on her back. The area in which her epidural leads entered was examined to ensure no redness or draining. Patient leads were then removed in sterile fashion. Patient then had Band-Aids placed over the puncture sites. Patient tolerated the procedure well. Plan and Disposition:: We will move forward with a permanent implant of a [employer] system for the patient given the efficacy of the trial. Patient's not on any anticoagulation therapy. I will follow-up with him after the is implant reassess him at that time he is been instructed to call the office if he has any issues prior to his next appointment. Dr. Martinez has reviewed this note and agrees with this plan of care. This note was dictated using voice recognition software and may contain errors or omissions
== END ==
PROVIDERS: PCP Family Medicine; Visit Provider Clinical Nurse Specialist Family Health
DX: M51.16 Intervertebral disc disorders with radiculopathy, lumbar region (principal); G62.9 Polyneuropathy, unspecified
CPT/HCPCS: 99212

== ENCOUNTER → 2019-09-19 11:02 | Outpatient (POV) | payer MEDICARE, SELFPAY ==
[2019-09-19 11:18] VITALS: BP 153/91; PULSE 86; RESP 18; O2SAT 98; BMI 27.5
--- NOTE | 2019-09-19 11:26 | HMH.PAINSOAP ---
[facility] Pain Management SOAP Note Subjective:: Patient is a pleasant 69-year-old white male who presents today for follow-up after a spinal cord stimulator placement. He is being treated for degenerative disc disease lumbar spine with lumbar radiculopathy symptoms and CRPS type II of his lower extremities. Patient rates his pain a 0 out of 10 today. He says he is having 0 pain. He says that he is doing very well since having his stimulator placement. Patient says he is able to walk longer and stand longer without any pain. He is very happy with the implant at this time. He does not need any reprogramming. Review of Systems General: No recent weight changes, no fever, no sleep disturbances Respiratory: No cough, no shortness of air, no recurring pulmonary infections Cardiovascular/peripheral vascular: No chest pain, no palpitations, no edema, no shortness of breath Gastrointestinal: No new onset incontinence, normal bowel movements reported Genitourinary: No new onset incontinence Musculoskeletal: Low back pain, bilateral lower extremity pain Psychiatric: Normal mood/affect Neurological: [Denies weakness in extremities], [denies balance issues] Objective:: Physical exam General: Alert and oriented x3, no acute distress, pleasant and cooperative, [on room air] Lungs: Respirations even and unlabored, symmetrical chest expansion Eyes: PERRL Musculoskeletal: Flexion and extension of lumbar spine somewhat guarded secondary to pain, deep tendon reflexes normal, strength in upper and lower extremities [5/5], [abnormal gait noted] Neurological: Speech clear, 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 His incision is well approximated, with no edema, no redness, no drainage noted to the site. His sutures are intact. We will see him back in the clinic in 2 weeks to remove his sutures and reassess his symptoms. Patient has been instructed to contact clinic if he has any concerns before his next appointment. Dr. Martinez has reviewed this note and agrees with this plan of care. This note was dictated using voice recognition software and make contain errors or omissions. [facility] History I have reviewed the patient's past medical history: Yes Medical History: Reports:: Hyperlipidemia, Hypertension Denies:: Cancer, Diabetes Mellitus Type 1, Diabetes Mellitus Type 2, Internal Pacemaker, MRSA, Seizures *Have you ever received a pneumonia vaccine?: Yes *Have you received a flu vaccine this season?: Yes Other Medical History: Reports: Arthritis, Other. Denies: Blood Transfusion Reaction Laterality Cases: Left: Other, Bilateral: Tonsillectomy Other Surgeries: Yes: Colonoscopy, Other. No: Pacemaker Amputation: No Fractures: No - *Social History Smoking Status: Former smoker Tobacco Type: cigarettes Alcohol Intake: never Alcohol Intake Frequency:: 0-2 drinks per day Substance Use Type: denies use *Occupational Status:: other Housing: house Household Members: spouse *Travel in the last 8 weeks: None Family Hx:: No significant family history
== END ==
PROVIDERS: PCP Family Medicine; Visit Provider Clinical Nurse Specialist Family Health
DX: M51.16 Intervertebral disc disorders with radiculopathy, lumbar region (principal); G57.73 Causalgia of bilateral lower limbs; Z09 Encounter for follow-up examination after completed treatment for conditions other than malignant neoplasm
CPT/HCPCS: 99212

== ENCOUNTER 2019-10-08 09:00 | Outpatient (RCR) | payer MEDICARE, SELFPAY ==
--- NOTE | 2019-08-27 08:46 | HMH.PTOPWND ---
Rehab Outpt Wound Evaluation Rehab OP Wound Evaluation Start: 08/27/19 08:01 Freq: Status: Active Protocol: Document 08/27/19 08:33 BECKIE (Rec: 08/27/19 08:46 PHODICKSON [id number]) Electronically Signed By Albert Alston, PT 08/27/19 08:33 Subjective/History History History Pt is 69 yowm who presents with c/o increased B LE edema x ~ 1 yr and gradually worsening. He reports he has been taking oral prednisone x 3 yrs (due to Myasthenia Gravis) which is most likely cause of the increased edema. He had full cardiac work-up with no CHF noted. He reports hx HTN, HL, peripheral neuropathy, L LE sciatica, Myasthenia Gravis. His neuropathy is worse on the L LE that the right with decreased sensation via monofilament testing on the R foot and absent on the L foot. He also currently presents with several small ulcers on the anterior R naidu with weeping serous drainage noted. He reports he is currently taking oral abx for the possibility of cellulitis on the R lower leg. Subjective Subjective He currently reports pain 2/10 , worse in the L LE. At worst, pain is 10/10 in the L LE. We discussed the possibility of referral to DPM due to the increased likelihood of Charcot foot due to the neuropathy. He reports his edema does not decrease with elevation. Wound Eval Wound Right Anterior Naidu Wound Type Stasis Ulcer Wound Bed Appearance Yellow Wound Margins Description Well Defined Surrounding Tissue Appearance [place] Edema Type Pitting Edema Degree 3+ Query Text:1+ Trace, Barely Detectable, Rebound 15-30 seconds 2+ Moderate, Slight Indentation, Rebound 10-20 seconds 3+ Deep, Deeper Indentation, Rebound > 30 seconds 4+ Very Deep, Rebound > 60 seconds
--- NOTE | 2019-09-24 10:25 | HMH.RHREAS ---
Rehab Reassessment Rehab OP Re-assessment Start: 09/24/19 10:17 Freq: Status: Active Protocol: Document 09/24/19 10:17 BECKIE (Rec: 09/24/19 10:25 BECKIE [id number]) Electronically Signed By Albert Alston, PT 09/24/19 10:17 Rehab Re-assessment Subjective Subjective Pt reports no c/o pain and feels mobility is improved. Objective Objective Notes Circumferential measurements: R LE -15.1 cm since initial eval. L LE -13.4 cm cince initial eval. Assessment Progress Assessment Progressing as Expected Assessment Notes Much improved edema in B LE, improved sensation and c/o numbness in the feet. Patient goals met STG: all Goals Not Met LTG: all Revised Goals none Plan Plan continue per initial poc. Frequency of Therapy 2 x/wk Duration of therapy 8 wks Time and Billing Re-Eval Time 15 Re-Eval Billing Units 1 PHYSICIAN CERTIFICATION: I certify the specified therapy services for Severiano Shaw are required, authorized, and reviewed every 30 days.
== END 2019-10-08 09:05 | disposition home or self-care (01) ==
LOC: PT 09:00
PROVIDERS: PCP Family Medicine; Visit Provider Family Medicine
DX: I87.2 Venous insufficiency (chronic) (peripheral) (principal); I89.0 Lymphedema, not elsewhere classified
CPT/HCPCS: 29580; 97110; 97140; 97162; 97164; 97760

== ENCOUNTER 2019-10-23 08:50 | Outpatient (CLI) | payer MEDICARE, SELFPAY ==
[2019-10-23] VITALS (10 sets, daily range): BP systolic 117–146; BP diastolic 63–91; PULSE 52–71; RESP 18; TEMP 36.5–36.6; O2SAT 98
== END 2019-10-23 11:50 | disposition home or self-care (01) ==
LOC: INF 08:53
PROVIDERS: Visit Provider Psychiatry & Neurology Clinical Neurophysiology
DX: G70.00 Myasthenia gravis without (acute) exacerbation (principal)
CPT/HCPCS: 96365; J1459

== ENCOUNTER → 2019-10-29 10:16 | Outpatient (POV) | payer MEDICARE, SELFPAY ==
[2019-10-29 10:49] VITALS: BP 156/85; PULSE 69; RESP 18; TEMP 36.6; O2SAT 98; BMI 27.5
--- NOTE | 2019-10-29 11:14 | HMH.PAINSOAP ---
[facility] Pain Management SOAP Note Subjective:: Patient is a pleasant 69-year-old white male who presents today for follow-up after spinal cord stimulator placement. Patient is doing extremely well rating his pain a 1 out of 10. Patient is completely healed. Overall patient doing well ROS General: no recent weight change, no fever, no sleep disturbances Respiratory: no cough, no shortness of air, no recurring pulmonary infections Cardiovascular/Peripheral Vascular: No chest pain, No palpitations, no edema, no shortness of breath. Gastrointestinal: no new onset incontinence, normal bowel movements reported Genitourinary: no new onset incontinence Musculoskeletal: Back pain at times Psychiatric: normal mood/ affect Neurological: [denies new onset weakness in extremities], [denies new onset balance issues] Objective:: Physical Exam General: Alert and oriented x3, no acute distress, pleasant and cooperative, [on room air] Lungs: Resps E/U, Symmetrical chest expansion, Eyes: PERRL Musculoskeletal: Flexion and extension of lumbar spine somewhat guarded secondary to pain, deep tendon reflexes normal, strength in upper and lower extremities [5/5], normal gait noted Neurological: speech clear, spinning doffer equal, no gross sensory deficits Assessment:: Degenerative disc disease lumbar spine with lumbar radiculopathy symptoms and CRPS type II Plan:: Overall patient is doing extremely well. We will see him back in 3 months. We specifically discussed risk factors for Covid-19 including age, heart or lung disease, diabetes, immunosuppression and travel. We also discussed that NSAIDs may worsen Covid-19 infection symptoms and that they should not be used to treat Covid-19 symptoms. Patient was also informed that corticosteroids in any form oral or injectable will decrease immune response and may increase risk of Covid-[address] Martinez has reviewed this patient's chart and this note and agrees with plan of care. Patient has been instructed to call the office if they have any issues prior to the next appointment. This note was dictated using voice recognition software and may contain errors or omissions [facility] History I have reviewed the patient's past medical history: Yes Medical History: Reports:: Arrhythmia, Hyperlipidemia, Hypertension Denies:: Cancer, Diabetes Mellitus Type 1, Diabetes Mellitus Type 2, Internal Pacemaker, MRSA, Seizures *Have you ever received a pneumonia vaccine?: Yes *Have you received a flu vaccine this season?: Yes Other Medical History: Reports: Arthritis, Sinus Problems, Other. Denies: Blood Transfusion Reaction Laterality Cases: Left: Other, Bilateral: Tonsillectomy Other Surgeries: Yes: Colonoscopy, Other. No: Pacemaker Amputation: No Fractures: No - *Social History Smoking Status: Former smoker Tobacco Type: cigarettes Alcohol Intake: current Alcohol Intake Frequency:: a few times a month Substance Use Type: denies use *Occupational Status:: other Housing: house Household Members: spouse, family *Travel in the last 8 weeks: None Family Hx:: Cancer, Other
== END ==
PROVIDERS: PCP Family Medicine; Visit Provider Clinical Nurse Specialist Family Health
DX: M51.16 Intervertebral disc disorders with radiculopathy, lumbar region (principal); G57.73 Causalgia of bilateral lower limbs
CPT/HCPCS: 99212

== ENCOUNTER 2019-12-18 08:50 | Outpatient (CLI) | payer MEDICARE, SELFPAY ==
[2019-12-18] VITALS (9 sets, daily range): BP systolic 121–144; BP diastolic 61–86; PULSE 49–59; RESP 18; TEMP 36.8
== END 2019-12-18 12:10 | disposition home or self-care (01) ==
LOC: INF 08:58
PROVIDERS: Visit Provider Psychiatry & Neurology Clinical Neurophysiology
DX: G70.00 Myasthenia gravis without (acute) exacerbation (principal); G62.9 Polyneuropathy, unspecified; G56.00 Carpal tunnel syndrome, unspecified upper limb
CPT/HCPCS: 96365; J1459

== ENCOUNTER 2020-02-12 09:05 | Outpatient (CLI) | payer MEDICARE, SELFPAY ==
[2020-02-12] VITALS (8 sets, daily range): BP systolic 116–157; BP diastolic 70–82; PULSE 43–52; RESP 18; TEMP 36.1; O2SAT 95
== END 2020-02-12 12:08 | disposition home or self-care (01) ==
LOC: INF 09:05
PROVIDERS: Visit Provider Psychiatry & Neurology Clinical Neurophysiology
DX: G70.00 Myasthenia gravis without (acute) exacerbation (principal)
CPT/HCPCS: 96365; J1568

== ENCOUNTER → 2020-03-03 15:21 | Outpatient (CLI) | payer MEDICARE, SELFPAY ==
--- NOTE | 2020-03-03 15:25 | XR_ITS ---
PROCEDURE: XR SHOULDER RT MIN 2V CLINICAL INDICATION: COMPLETE TEAR OF RT ROTATOR CUFF Right shoulder pain COMPARISON: CR [id number] VIEWS from 11/27/2015 CR [id number] VIEWS from 03/14/2016 FINDINGS: There are mild osteoarthritic changes of the acromioclavicular joint and glenohumeral joint with slightly high-riding humeral which may be seen with rotator cuff injury. No acute fracture or dislocation. No lytic or blastic change. IMPRESSION: Mild osteoarthritis of the acromioclavicular joint and glenohumeral joint. Dictated b Al Hernandez MD 03/03/2020 15:48 Al Hernandez MD in [place] 03/03/2020 15:48
== END ==
PROVIDERS: PCP Family Medicine; Visit Provider Family Medicine
DX: M75.121 Complete rotator cuff tear or rupture of right shoulder, not specified as traumatic (principal); S46.211A Strain of muscle, fascia and tendon of other parts of biceps, right arm, initial encounter
CPT/HCPCS: 73030

== ENCOUNTER 2020-04-08 09:11 | Outpatient (CLI) | payer MEDICARE, SELFPAY ==
[2020-04-08] VITALS (8 sets, daily range): BP systolic 114–164; BP diastolic 70–98; PULSE 45–58; RESP 18–20; TEMP 36.2; O2SAT 96
== END 2020-04-08 11:56 | disposition home or self-care (01) ==
LOC: INF 09:11
PROVIDERS: Visit Provider Psychiatry & Neurology Clinical Neurophysiology
DX: G70.00 Myasthenia gravis without (acute) exacerbation (principal)
CPT/HCPCS: 96365; J1459

== ENCOUNTER 2020-06-03 09:00 | Outpatient (CLI) | payer MEDICARE, SELFPAY ==
[2020-06-03] VITALS (9 sets, daily range): BP systolic 113–149; BP diastolic 57–93; PULSE 42–59; RESP 18; TEMP 36.7; O2SAT 99
== END 2020-06-03 11:50 | disposition home or self-care (01) ==
LOC: INF 09:00
PROVIDERS: Visit Provider Psychiatry & Neurology Clinical Neurophysiology
DX: G70.00 Myasthenia gravis without (acute) exacerbation (principal); G62.9 Polyneuropathy, unspecified
CPT/HCPCS: 96365; J1459

== ENCOUNTER 2020-07-31 08:45 | Outpatient (CLI) | payer MEDICARE, SELFPAY ==
[2020-07-31] VITALS (10 sets, daily range): BP systolic 114–154; BP diastolic 66–90; PULSE 40–47; RESP 16–18; TEMP 35.8; O2SAT 97
== END 2020-07-31 11:45 | disposition home or self-care (01) ==
LOC: INF 08:59
PROVIDERS: Visit Provider Psychiatry & Neurology Clinical Neurophysiology
DX: G70.00 Myasthenia gravis without (acute) exacerbation (principal)
CPT/HCPCS: 96365; J1459

== ENCOUNTER 2020-09-23 09:01 | Outpatient (CLI) | payer MEDICARE, SELFPAY ==
[2020-09-23] VITALS (9 sets, daily range): BP systolic 118–175; BP diastolic 58–89; PULSE 45–56; RESP 18; TEMP 36.7; O2SAT 97
== END 2020-09-23 11:50 | disposition home or self-care (01) ==
LOC: INF 09:01
PROVIDERS: Visit Provider Psychiatry & Neurology Clinical Neurophysiology
DX: G70.00 Myasthenia gravis without (acute) exacerbation (principal)
CPT/HCPCS: 96365; J1459

== ENCOUNTER → 2020-11-11 14:55 | Outpatient (CLI) | payer MEDICARE, SELFPAY ==
--- NOTE | 2020-11-11 14:56 | CA_ITS ---
APPROVED REPORT EXAM: Comprehensive 2D, Doppler, and color-flow Echocardiogram Certified Real Estate Appraiser: Ellen Christian RVT Ht: 6 ft 0 in Wt: 212lbs BSA: 2.18 BP: 132/76 mmHg Indications: SOA,EX SMOKER 2D Dimensions LVOT 1.83 cm (M/F) 1.5-2.5 LA Volume 36.80 mL LA Volume Index 16.88 mL/m2 (M/F) 16-34 M-Mode Dimensions RVDd 3.09 cm (0.9-2.6) LA Diam 4.24 cm (1.9-4.0) LVDd 4.45 cm (3.5-5.7) Ao Diam 3.41 cm (2.0-3.7) LVDs 3.26 cm (3.5-5.7) IVSd 1.44 cm (0.6-1.1) PWd 0.85 cm (0.6-1.1) EF (Teich) 52.50% FS 26.70% EDV (Teich) 90.10 mL TAPSE 2.61 (<1.7) ESV (Teich) 42.80 mL LV Diastology E Decel Time 280.00 (160-240 msec) E/A Ratio 0.8 MED E' 5.20 (< 7 cm/sec) E'/MED E' Ratio 16.19 (>14) LAT E' 6.00 (<10 cm/sec) E/LAT E' Ratio 14.03 (>14) Aortic Valve AI PHT 1083.00 ms Mitral Valve MV E Max Kofi. 84.00 (40-130 cm/s) MV A Velocity 107.00 (40-130 cm/s) E/A Ratio 0.79 MV Decel. Time 280.00 (160-240 ms) MV PHT 82.00 ms Pulmonary Valve PV Peak Velocity 87.00 (50-150 cm/s) Tricuspid Valve TR P. Velocity 253.00 cm/s RAP Estimate 10.00 mmHg RVSP 35.60 mmHg Left Ventricle Left atrium is mildly enlarged, left ventricle is normal size, mild concentric left ventricular hypertrophy, visually estimated ejection fraction 55% with no regional wall motion abnormality, grade 1 diastolic dysfunction seen with tissue Doppler evidence of raise left atrial pressure. Right Ventricle Right atrium and right ventricle are mildly enlarged with normal contractility. Aortic Valve Aortic valve is thickened and calcified without Doppler evidence of aortic stenosis, there is mild aortic insufficiency. Mitral Valve Mitral valve leaflets are minimally thickened, there is mild mitral regurgitation. Tricuspid Valve Tricuspid grossly normal, there is mild tricuspid rotation, tricuspid regurgitation jet velocity is inadequate for calculation of the right ventricular systolic pressure. Pulmonic Valve Pulmonic valve is poorly visualized. Great Vessels Aortic root is mildly enlarged measuring 3.9 cm. Pericardium No significant pericardial effusion noted. Conclusion 1. Mild biatrial enlargement, normal left ventricular size, mild concentric left ventricular hypertrophy, visually estimated ejection fraction 55% with no regional wall motion abnormality, grade 1 diastolic dysfunction seen with tissue Doppler evidence of raise left atrial pressure. 2. Mildly enlarged right ventricle with normal contractility. 3. Thickened and calcified aortic valve without Doppler evidence of aortic stenosis, there is mild aortic insufficiency, aortic root is enlarged measuring 3.9 cm. 4. Mild mitral and tricuspid regurgitation. 5. No significant pericardial effusion noted. Electronically signed by : Mauricio Louis, 11/12/2020 16:02:24
== END ==
PROVIDERS: PCP Family Medicine; Visit Provider Urology
DX: E78.5 Hyperlipidemia, unspecified (principal); I10 Essential (primary) hypertension; I34.0 Nonrheumatic mitral (valve) insufficiency; R60.9 Edema, unspecified; R94.31 Abnormal electrocardiogram [ECG] [EKG]
CPT/HCPCS: 93306

== ENCOUNTER 2020-11-18 09:05 | Outpatient (CLI) | payer MEDICARE, SELFPAY ==
[2020-11-18 09:50] VITALS: BP 142/74; PULSE 58; RESP 17; TEMP 36.6; O2SAT 96
[2020-11-18 10:23] VITALS: BP 147/81; PULSE 61; O2SAT 97
[2020-11-18 11:15] VITALS: BP 142/75; PULSE 59; RESP 17; O2SAT 96
[2020-11-18 12:16] VITALS: BP 149/86; PULSE 62; RESP 17; O2SAT 96
== END 2020-11-18 12:21 | disposition home or self-care (01) ==
LOC: INF 09:05
PROVIDERS: Visit Provider Psychiatry & Neurology Clinical Neurophysiology
DX: G70.00 Myasthenia gravis without (acute) exacerbation (principal)
CPT/HCPCS: 96365; 96366; J1459

== ENCOUNTER 2021-01-29 09:47 | Outpatient (CLI) | payer MEDICARE, SELFPAY ==
[2021-01-29 09:50] VITALS: BMI 27.8
[2021-01-29 10:30] VITALS: BP 125/74; PULSE 57; RESP 18; O2SAT 96
[2021-01-29 11:10] VITALS: BP 147/95; PULSE 60; RESP 18
[2021-01-29 11:30] VITALS: BP 148/60; PULSE 60; RESP 18
[2021-01-29 12:05] VITALS: BP 147/88; PULSE 64; RESP 18
== END 2021-01-29 12:05 | disposition home or self-care (01) ==
LOC: INF 09:48
PROVIDERS: Visit Provider Psychiatry & Neurology Clinical Neurophysiology
DX: G70.00 Myasthenia gravis without (acute) exacerbation (principal)
CPT/HCPCS: 96365; J1459

== ENCOUNTER 2021-03-24 08:56 | Outpatient (CLI) | payer MEDICARE, SELFPAY ==
[2021-03-24] VITALS (7 sets, daily range): BP systolic 103–141; BP diastolic 64–87; PULSE 50–62; RESP 16–18; TEMP 36.4; O2SAT 98
== END 2021-03-24 11:35 | disposition home or self-care (01) ==
LOC: INF 08:57
PROVIDERS: PCP Family Medicine; Visit Provider Psychiatry & Neurology Clinical Neurophysiology
DX: G70.00 Myasthenia gravis without (acute) exacerbation (principal)
CPT/HCPCS: 96365; J1459

== ENCOUNTER 2021-05-19 09:28 | Outpatient (CLI) | payer MEDICARE, SELFPAY ==
[2021-05-19 10:24] VITALS: BP 144/72; PULSE 67; RESP 17; TEMP 36.8; O2SAT 98
[2021-05-19 11:00] VITALS: BP 133/76; PULSE 56
[2021-05-19 11:30] VITALS: BP 153/93; PULSE 56
[2021-05-19 11:55] VITALS: BP 147/86; PULSE 72
[2021-05-19 12:05] VITALS: BP 151/86; PULSE 73; RESP 16; TEMP 36.7; O2SAT 98
== END 2021-05-19 12:08 | disposition home or self-care (01) ==
LOC: INF 09:29
PROVIDERS: PCP Family Medicine; Visit Provider Specialist
DX: G70.00 Myasthenia gravis without (acute) exacerbation (principal)
CPT/HCPCS: 96365; 96366; J1459

== ENCOUNTER → 2021-06-03 13:19 | Outpatient (CLI) | payer MEDICARE, SELFPAY ==
--- NOTE | 2021-06-03 13:20 | CA_ITS ---
APPROVED REPORT EXAM: Comprehensive 2D, Doppler, and color-flow Echocardiogram Electric Plater: Ellen Christian RVT Ht: 6 ft 0 in Wt: 210lbs BSA: 2.18 BP: 116/66 mmHg Indications: SOA,HTN,HLD,DD,DM,MYASTHENIA GRAVIS 2D Dimensions LVOT 2.21 cm (M/F) 1.5-2.5 LA Volume 49.10 mL LA Volume Index 22.62 mL/m2 (M/F) 16-34 M-Mode Dimensions RVDd 2.44 cm (0.9-2.6) LA Diam 4.92 cm (1.9-4.0) LVDd 5.91 cm (3.5-5.7) Ao Diam 3.96 cm (2.0-3.7) LVDs 3.94 cm (3.5-5.7) IVSd 1.55 cm (0.6-1.1) PWd 0.94 cm (0.6-1.1) EF (Teich) 61.20% FS 33.30% EDV (Teich) 173.90 mL TAPSE 2.78 (<1.7) ESV (Teich) 67.50 mL LV Diastology E Decel Time 210.00 (160-240 msec) E/A Ratio 0.7 MED E' 6.10 (< 7 cm/sec) E'/MED E' Ratio 10.05 (>14) LAT E' 8.90 (<10 cm/sec) E/LAT E' Ratio 6.89 (>14) Aortic Valve LVOT Max 125.00 (70-110 cm/s) LVOT VTI 27.27 cm AoV Peak Kofi. 199.00 (50-130 cm/s) AI PHT 1072.00 ms AO Peak GR. 15.90 mmHg AO Mean GR. 8.20 (<5 mmHg) AO VTI 40.64 (18-25 cm) HI (VTI) 2.57 (2.5-4.5 cm2) Mitral Valve MV E Max Kofi. 61.00 (40-130 cm/s) MV A Velocity 86.00 (40-130 cm/s) E/A Ratio 0.71 MV Decel. Time 210.00 (160-240 ms) MV PHT 62.00 ms Pulmonary Valve PV Peak Velocity 95.00 (50-150 cm/s) Tricuspid Valve TR P. Velocity 285.00 cm/s RAP Estimate 10.00 mmHg RVSP 42.40 mmHg Left Ventricle Left atrium is mildly enlarged, left ventricle is normal size, mild concentric left ventricular hypertrophy, visually estimated ejection fraction 55% with no regional wall motion abnormality, grade 1 diastolic dysfunction seen without tissue Doppler evidence of raise left atrial pressure. Right Ventricle Right atrium and right ventricle are normal size and contractility. Aortic Valve Aortic valve is thickened and calcified without Doppler evidence of aortic stenosis, there is mild aortic insufficiency. Mitral Valve Mitral valve has mild mitral annular calcification, there is no mitral stenosis, there is mild mitral regurgitation. Tricuspid Valve Tricuspid valve is grossly normal, there is mild tricuspid regurgitation, tricuspid regurgitation jet velocity is inadequate for calculation of the right ventricular systolic pressure. Pulmonic Valve Pulmonic valve is poorly visualized. Great Vessels Aortic root is enlarged measuring 3.9 cm. Inferior vena cava is normal size with normal inspiratory collapse. Pericardium No significant pericardial effusion noted. Conclusion 1. Mildly enlarged left atrium, normal left ventricular size, mild concentric left ventricular hypertrophy, visually estimated ejection fraction 55% with no regional wall motion abnormality, grade 1 diastolic dysfunction seen without tissue Doppler evidence of raise left atrial pressure. 2. Thickened and calcified aortic valve without Doppler evidence of aortic stenosis, there is mild aortic insufficiency. 3. Mildly enlarged right ventricle with normal contractility. 4. No significant pericardial effusion. 5. Inferior vena cava is normal size with normal inspiratory collapse. Electronically signed by : Mauricio Louis MD 06/04/2021 10:55:56
== END ==
PROVIDERS: PCP Family Medicine; Visit Provider Internal Medicine Cardiovascular Disease
DX: E78.5 Hyperlipidemia, unspecified (principal); I10 Essential (primary) hypertension; I34.0 Nonrheumatic mitral (valve) insufficiency; I35.1 Nonrheumatic aortic (valve) insufficiency
CPT/HCPCS: 93306

== ENCOUNTER 2021-07-14 08:34 | Outpatient (CLI) | payer MEDICARE, SELFPAY ==
[2021-07-14 09:18] VITALS: BP 108/72; PULSE 51; RESP 18; TEMP 36.3; O2SAT 96
[2021-07-14 09:50] VITALS: BP 158/92; PULSE 57; RESP 18
[2021-07-14 10:45] VITALS: BP 161/90; PULSE 53; RESP 18
== END 2021-07-14 10:45 | disposition home or self-care (01) ==
LOC: INF 08:35
PROVIDERS: PCP Family Medicine; Visit Provider Psychiatry & Neurology Clinical Neurophysiology
DX: G70.00 Myasthenia gravis without (acute) exacerbation (principal)
CPT/HCPCS: 96365; J1459

== ENCOUNTER 2021-09-08 09:50 | Outpatient (CLI) | payer MEDICARE, SELFPAY ==
[2021-09-08 10:45] VITALS: BP 154/80; PULSE 46; RESP 18; O2SAT 100
[2021-09-08 11:15] VITALS: BP 154/80; PULSE 56; RESP 18
[2021-09-08 12:14] VITALS: BP 151/75; PULSE 50; RESP 18
== END 2021-09-08 12:14 | disposition home or self-care (01) ==
LOC: INF 09:51
PROVIDERS: PCP Family Medicine; Visit Provider Psychiatry & Neurology Clinical Neurophysiology
DX: G70.00 Myasthenia gravis without (acute) exacerbation (principal)
CPT/HCPCS: 96365; J1459

== ENCOUNTER 2021-11-03 09:07 | Outpatient (CLI) | payer MEDICARE, SELFPAY ==
[2021-11-03] VITALS (7 sets, daily range): BP systolic 138–170; BP diastolic 69–88; PULSE 57–66; RESP 18; O2SAT 97
--- NOTE | 2021-11-03 09:12 | XR_ITS ---
FINAL REPORT CLINICAL HISTORY: wrist pain FINDINGS: 3 views of the left wrist were obtained. There is no acute fracture or dislocation. There is a rounded radiodensity at the basilar joint, probably related to prosthesis. There is indention at the base of the 1st metacarpal. There is no soft tissue abnormality. IMPRESSION: Prosthesis at the basilar joint. Reviewed, Interpreted and Dictated by Juan A Faith MD Transcribed by Forrest Quesada Authenticated by Juan A Faith MD on 11/03/2021 11:06:[address] [facility]
== END 2021-11-03 14:20 | disposition home or self-care (01) ==
LOC: INF 09:08
PROVIDERS: PCP Family Medicine; Referring Provider Orthopaedic Surgery; Visit Provider Psychiatry & Neurology Clinical Neurophysiology
DX: M25.532 Pain in left wrist (principal); G70.00 Myasthenia gravis without (acute) exacerbation
CPT/HCPCS: 73110; 96365; J1459

== ENCOUNTER → 2021-11-20 09:41 | Outpatient (CLI) | payer MEDICARE, SELFPAY ==
[2021-11-20 10:14] LABS: Blood Urea Nitrogen 25 mg/dl (9-20); Estimated Glomerular Filt Rate 73 ml/min (>60); GFR (African American) 89 ML/MIN (>60)
== END ==
PROVIDERS: PCP Family Medicine; Visit Provider Student in an Organized Health Care Education/Training Program
DX: H90.5 Unspecified sensorineural hearing loss (principal)
CPT/HCPCS: 36415; 82565; 84520

== ENCOUNTER → 2021-11-23 11:11 | Outpatient (CLI) | payer MEDICARE, SELFPAY ==
--- NOTE | 2021-11-23 11:16 | XR_ITS ---
FINAL REPORT CLINICAL HISTORY: pre op, hypertension FINDINGS: TWO-VIEW CHEST The heart size is normal. There is elevation of the left hemidiaphragm. There is left base atelectasis. There is no pneumothorax. The osseous structures demonstrate degenerative change and rightward curvature of the thoracolumbar spine. A spinal stimulator is present. IMPRESSION: Left base atelectasis. Reviewed, Interpreted and Dictated by Severiano Pacheco III, MD Transcribed by Rowena Graham Authenticated by Severiano Pacheco III, MD on 11/23/2021 12:21:15 PM [facility]
--- NOTE | 2021-11-23 11:49 | ECG_ITS ---
APPROVED REPORT Exam: Resting ECG HR:49 bpm ECG Measurements Heart Rate 49 AXES ME 148 P -7 QRSd 102 QRS -19 QT 415 T 56 QTc 386 Conclusion SINUS BRADYCARDIA BORDERLINE ECG UNCONFIRMED REPORT Electronically signed by : Adrien Rascon MD 11/24/2021 17:56:38
[2021-11-23 12:42] LABS: Basophils # 0.1 K/mm3 (0-0.2); Basophils % 1.2 % (0.1-2.0); Eosinophils # 0.1 K/mm3 (0.0-0.4); Eosinophils % 1.7 % (0.1-12.0); Hematocrit 49.2 % (42.0-52.0); Hemoglobin 15.9 g/dL (14.1-18.0); Lymphocytes # 1.5 K/mm3 (0.7-4.5); Lymphocytes % 24.1 % (10-50); Mean Corpuscular HGB Conc 32.3 g/dL (31.8-35.4); Mean Corpuscular Volume 95.9 fl (80-94); Mean Platelet Volume 10.1 fl (7.4-10.4); Monocytes # 0.6 K/mm3 (0.1-1.0); Monocytes % 9.1 % (1.7-9.3); Neutrophils # 4.1 K/mm3 (1.8-7.8); Neutrophils % 63.9 % (37.0-80.0); Platelet Count 266 K/mm3 (142-424); Red Blood Count 5.13 M/mm3 (4.60-6.20); Red Cell Distribution Width 14.5 % (11.5-17.5); White Blood Count 6.4 K/mm3 (4.8-10.8)
[2021-11-23 12:54] LABS: Alanine Aminotransferase 18 U/L (12-78); Albumin Level 4.4 g/dl (3.5-5.0); Albumin/Globulin Ratio 1.6 (1.1-1.8); Alkaline Phosphatase 98 U/L (38-126); Anion Gap 9.4 mEq/L (5-15); Aspartate Amino Transferase 30 U/L (17-59); Bilirubin,Total 0.8 mg/dl (0.2-1.3); Blood Urea Nitrogen 25 mg/dl (9-20); Calcium 9.5 mg/dl (8.4-10.2); Carbon Dioxide 22 mmol/L (22.0-30.0); Chloride 113 mmol/L (98-107); Estimated Glomerular Filt Rate 73 ml/min (>60); GFR (African American) 89 ML/MIN (>60); Globulin 2.7 g/dL (1.3-3.2); Glucose 99 mg/dl (74-100); Potassium 4.4 mmoL/L (3.5-5.1); Sodium 140 mmol/L (136-145); Total Protein,Serum 7.1 g/dl (6.3-8.2)
== END ==
PROVIDERS: PCP Family Medicine; Visit Provider Orthopaedic Surgery
DX: G56.00 Carpal tunnel syndrome, unspecified upper limb (principal); I77.810 Thoracic aortic ectasia; Z01.818 Encounter for other preprocedural examination; Z11.52 Encounter for screening for COVID-19
CPT/HCPCS: 36415; 71046; 80053; 85025; 93005; C9803; U0003; U0005

== ENCOUNTER 2021-11-25 10:34 | Day surgery (SDC) | payer MEDICARE, SELFPAY ==
[2021-11-23 14:56] VITALS: BMI 27.6
[2021-11-25] VITALS (10 sets, daily range): BP systolic 130–175; BP diastolic 76–90; PULSE 50–65; RESP 14–18; TEMP 36.5–43; O2SAT 94–98
--- NOTE | 2021-11-25 14:57 | HMH.ANESCL ---
[facility] Anesthesia Checklist - Patient Identification Patient Identification: Arm Band - Structural Data Admitted From: Home Planned Operative Procedure/s: Right Carpal Tunnel Release, Right Cubital Tunnel Release Consent for Planned Operative Procedure(s) Verified: Yes Verified Documents: Surgical Consent, History and Physical - NPO Status Verified Time NPO: 00:00 - Additional verifications Anesthesia Reactions: No Hx Blood Transfusions: No Blood Transfusion Reaction: No - Airway Assessment C-Spine Mobility Assessed: Yes (mp2) TMJ Mobility Assessed: Yes Dentition: Good Dentition - Neurological Assessment Level of Consciousness: Awake, Alert - Anesthesia Plan Anesthesia Risk discussed: Yes Anesthesia Plan: Verified ASA Class: III Anesthesia Type: General [facility] History I have reviewed the patient's past medical history: Yes Medical History: Reports:: Arrhythmia, Hyperlipidemia, Hypertension Denies:: Cancer, Diabetes Mellitus Type 1, Diabetes Mellitus Type 2, Internal Pacemaker, MRSA, Seizures *Have you ever received a pneumonia vaccine?: Yes *Have you received a flu vaccine this season?: Yes Other Medical History: Reports: Arthritis, Cataracts, Sinus Problems, Other. Denies: Blood Transfusion Reaction Anesthesia experience/problems:: nac Laterality Cases: Left: Other, Right: Carpal Tunnel Release, Bilateral: Tonsillectomy Other Surgeries: Yes: Colonoscopy, Other (NEUROSTIMULATOR). No: Pacemaker Amputation: No Fractures: No - *Social History Last grade of school completed: High school graduate Smoking Status: Never smoker Tobacco Type: cigarettes Alcohol Intake: never Alcohol Intake Frequency:: a few times a month Substance Use Type: denies use *Occupational Status:: retired Housing: house Household Members: spouse, children *Travel in the last 8 weeks: None Family Hx:: Cancer, Other
--- NOTE | 2021-11-25 14:58 | HMH.ANESI ---
[facility] Anesthesia Record Part I Intake, IV Amount: 1,600 Estimated blood loss (mL): 10 Urine output (mL): 0 Blood Pressure: 142/88 SaO2: 94 Pulse Rate: 59 Respiratory Rate: 16 Temperature: 97.7 F Patient is:: Drowsy, Stable Stable to PACU at:: 14:50
--- NOTE | 2021-11-25 15:27 | HMH.OPNOTE ---
Date of procedure: 11/25/21 Pre-op Diagnosis:: 1. Cubital tunnel syndrome, left elbow 2. Carpal tunnel syndrome, left wrist Post-op Diagnosis:: Same Procedure performed:: 1. Cubital tunnel release, left elbow 2. Anterior transposition of the ulnar nerve, left elbow 3. Carpal tunnel release, left wrist Surgeon:: Jacky Guillory MD Application Administrator(s):: Nancy Dejesus PA-C SUPERVISOR ANODIZING:: Jose Luis Leo Anesthesia: LMA Estimated blood loss (mL): 10 Clinical Note:: Patient is a 71-year-old male with chronic paresthesias and weakness in his left upper extremity. The EMG/NCV study of the left upper extremity showed moderate left carpal tunnel syndrome and severe left tibial tunnel syndrome. He reports that he has had numbness and tingling in his left fourth and fifth digits for many years which has gradually worsened. He also reports weakness in the left hand and muscle loss; he reports that he feels clumsy with his hands and has difficulty grasping objects. He reports that he had a first CMC arthroplasty performed about 13 years ago by a hand surgeon in [place]; He denies any other prior surgeries or injections to his left hand. He states that he has tried ibuprofen, ice, elevation, and use of wrist braces for his numbness/tingling without significant relief. He states that he was evaluated and diagnosed with carpal tunnel syndrome approximately 5 years ago, but did not have surgery at that time since he was not having any pain. His past medical history significant for myasthenia gravis and hypertension. He is a non-smoker and is retired. He denies any other symptoms or concerns at this time. On clinical examination the findings are consistent with severe left cubital tunnel and carpal tunnel syndromes. Therefore, a left cubital tunnel release with or without anterior transposition of the ulnar nerve and a left carpal tunnel release are indicated to relieve the pain and paresthesias, improve function and prevent further permanent nerve damage. Please refer to orthopedic office note for full details. Operative findings:: Left cubital tunnel syndrome: On examination under anesthesia, the ulnar nerve noted not to be subluxing over the medial epicondyle. At surgery, the nerve is noted to be significantly constricted as it passed through the cubital tunnel. There was presence of hourglass constriction of the ulnar nerve behind the medial epicondyle and also some compression noted as it enters the flexor carpi ulnaris muscle. After the nerve was decompressed and the cubital tunnel, it was subluxing anteriorly over the medial epicondyle with flexion and extension. Therefore, I proceeded with anterior transposition of the ulnar nerve. Left carpal tunnel syndrome: The intraoperative findings showed the median nerve to be very tightly compressed and hyperemic. The flexor retinaculum was noted to be thick and very tight. There was mild synovitis in the carpal tunnel. There was no evidence of any space-occupying lesions within the carpal tunnel. Operative note:: On the day of the surgery the patient was met in the preoperative area. Patient was positively identified, and the operative site/side was marked and initialed by me. A physical examination was performed, and the chart was updated. I have reviewed the clinical, x-ray, EMG/NCV findings and discussed the diagnosis, natural history and management options in detail including both nonsurgical and surgical with the patient. Patient has had symptoms for a long time and had appropriate conservative management for a length of time without significant benefit. Therefore, following detailed discussion, patient elected to proceed with surgical patient in the form of left cubital tunnel decompression with or without anterior transposition of the ulnar nerve and left carpal tunnel release. Today I have again discussed the details of the cubital tunnel and carpal tunnel releases and ulnar nerve transposition procedure, risks, benef
[2021-11-29 07:33] VITALS: BP 130/77; PULSE 53; TEMP 36.5
--- NOTE | 2021-11-29 07:33 | P.PN_ITS ---
[facility] Anesthesia Record Part II Discharge Time: 15:20 Destination: Surgical Day Care (OP Surgery) PACU nurse assessment reviewed?: Yes Patient Condition:: Good Anesthesia Complications:: None Swallowing reflex intact?: Yes Cyanosis?: No Blood Pressure: 130/77 Pulse Rate: 53 Temperature: 97.7 F Mental Status: Alert & Oriented Pain level:: 0 Nausea and/or vomitting:: None Intake, IV Amount: 0
== END 2021-11-25 15:51 | disposition home or self-care (01) ==
LOC: OR 10:35
PROVIDERS: PCP Family Medicine; Visit Provider Orthopaedic Surgery
PROC: (CPT 64721; principal; 2021-11-25 12:00)
DX: G56.02 Carpal tunnel syndrome, left upper limb (principal); G56.22 Lesion of ulnar nerve, left upper limb
CPT/HCPCS: 64718; 64721; 96374; J2405

== ENCOUNTER → 2021-12-11 09:53 | Outpatient (CLI) | payer MEDICARE, SELFPAY ==
[2021-12-11 11:26] LABS: Blood Urea Nitrogen 21 mg/dl (9-20); Estimated Glomerular Filt Rate 73 ml/min (>60); GFR (African American) 89 ML/MIN (>60)
== END ==
PROVIDERS: PCP Family Medicine; Visit Provider Student in an Organized Health Care Education/Training Program
DX: H65.21 Chronic serous otitis media, right ear (principal); H91.90 Unspecified hearing loss, unspecified ear
CPT/HCPCS: 36415; 82565; 84520

== ENCOUNTER → 2021-12-13 14:07 | Outpatient (CLI) | payer MEDICARE, SELFPAY ==
--- NOTE | 2021-12-13 14:08 | CT_ITS ---
FINAL REPORT CLINICAL HISTORY: unable to have MRi due to implant/ r/o growth hearing loss, right side FINDINGS: Thin section axial imaging was obtained through the face and skull base with attention to the temporal bones. Right: The right external auditory canal is patent. The middle ear ossicles appear intact. There is no fluid within the right mastoid air cells. The cochlea and semi circular canals appear intact. There is no widening of the internal auditory canal. No abnormal soft tissue is seen in the middle ear cavity. The right TMJ is intact. Left: The left external auditory canal is patent. The middle ear ossicles appear intact. There is no fluid within the left mastoid air cells. The cochlea and semi circular canals appear intact. There is no widening of the internal auditory canal. No abnormal soft tissue is seen in the middle ear cavity. The left TMJ is intact. On the large [id number] imaging, there is no acute osseous abnormality. The paranasal sinuses are without air-fluid levels. IMPRESSION: No acute process. Reviewed, Interpreted and Dictated by Nighat Trejo MD Transcribed by Amaya Bermudez Authenticated by Nighat Trejo MD on 12/13/2021 05:01:26 PM [facility]
== END ==
PROVIDERS: PCP Family Medicine; Visit Provider Student in an Organized Health Care Education/Training Program
DX: H65.21 Chronic serous otitis media, right ear (principal); H91.90 Unspecified hearing loss, unspecified ear
CPT/HCPCS: 70481; Q9967

== ENCOUNTER → 2021-12-24 10:21 | Outpatient (CLI) | payer MEDICARE, SELFPAY ==
[2021-12-24 10:43] LABS: Basophils # 0.2 K/mm3 (0-0.2); Basophils % 3.2 % (0.1-2.0); Eosinophils # 0.3 K/mm3 (0.0-0.4); Eosinophils % 3.9 % (0.1-12.0); Hemoglobin 15.6 g/dL (14.1-18.0); Lymphocytes # 1.2 K/mm3 (0.7-4.5); Lymphocytes % 17.6 % (10-50); Mean Corpuscular HGB Conc 32.5 g/dL (31.8-35.4); Mean Corpuscular Hemoglobin 31.3 pg (27.0-31.2); Mean Corpuscular Volume 96.6 fl (80-94); Mean Platelet Volume 9.1 fl (7.4-10.4); Monocytes # 0.7 K/mm3 (0.1-1.0); Monocytes % 9.7 % (1.7-9.3); Neutrophils # 4.5 K/mm3 (1.8-7.8); Neutrophils % 65.5 % (37.0-80.0); Platelet Count 270 K/mm3 (142-424); Red Blood Count 4.97 M/mm3 (4.60-6.20); White Blood Count 6.8 K/mm3 (4.8-10.8)
[2021-12-24 11:06] LABS: Erythrocyte Sedimentation Rate 6 mm/hr (0-20)
[2021-12-24 11:24] LABS: C-Reactive Protein 49.4 mg/L (0-4)
== END ==
PROVIDERS: PCP Family Medicine; Visit Provider Physician Assistant Surgical
DX: G89.18 Other acute postprocedural pain (principal); I77.810 Thoracic aortic ectasia
CPT/HCPCS: 36415; 85025; 85651; 86140

== ENCOUNTER 2021-12-29 09:47 | Outpatient (CLI) | payer MEDICARE, SELFPAY ==
[2021-12-29 10:35] VITALS: BP 126/73; PULSE 53; RESP 18; O2SAT 99
[2021-12-29 11:05] VITALS: BP 148/85; PULSE 53; RESP 16
[2021-12-29 11:35] VITALS: BP 146/89; PULSE 56; RESP 16
[2021-12-29 12:05] VITALS: BP 169/87; PULSE 57; RESP 16
== END 2021-12-29 12:10 | disposition home or self-care (01) ==
LOC: INF 09:49
PROVIDERS: PCP Family Medicine
DX: G70.00 Myasthenia gravis without (acute) exacerbation (principal)
CPT/HCPCS: 96365; J1459

== ENCOUNTER 2022-02-01 13:00 | Outpatient (RCR) | payer MEDICARE, OTHER, SELFPAY | END 2022-02-01 13:05 | disposition home or self-care (01) | LOC: OT 13:00 | PROVIDERS: PCP Family Medicine; Visit Provider Orthopaedic Surgery | DX: G56.02 Carpal tunnel syndrome, left upper limb (principal); G56.22 Lesion of ulnar nerve, left upper limb | CPT/HCPCS: 97010; 97014; 97035; 97110; 97140; 97165; 97530; G0283 ==

== ENCOUNTER 2022-02-23 09:25 | Outpatient (CLI) | payer MEDICARE, SELFPAY ==
[2022-02-23] VITALS (7 sets, daily range): BP systolic 138–159; BP diastolic 72–88; PULSE 43–52; RESP 18; O2SAT 98
== END 2022-02-23 11:50 | disposition home or self-care (01) ==
LOC: INF 09:26
PROVIDERS: PCP Family Medicine; Visit Provider Psychiatry & Neurology Clinical Neurophysiology
DX: G70.00 Myasthenia gravis without (acute) exacerbation (principal)
CPT/HCPCS: 96365; J1459

== ENCOUNTER 2022-04-20 08:55 | Outpatient (CLI) | payer MEDICARE, SELFPAY ==
[2022-04-20 09:40] VITALS: BP 151/89; PULSE 54; RESP 18; O2SAT 100
[2022-04-20 10:10] VITALS: BP 127/76; PULSE 53; RESP 18
[2022-04-20 10:40] VITALS: BP 138/72; PULSE 58; RESP 18
[2022-04-20 11:10] VITALS: BP 148/79; PULSE 52; RESP 18; O2SAT 98
== END 2022-04-20 11:10 | disposition home or self-care (01) ==
LOC: INF 08:56
PROVIDERS: PCP Family Medicine; Visit Provider Psychiatry & Neurology Clinical Neurophysiology
DX: G70.00 Myasthenia gravis without (acute) exacerbation (principal)
CPT/HCPCS: 96365; J1459

== ENCOUNTER 2022-06-15 10:08 | Outpatient (CLI) | payer MEDICARE, SELFPAY ==
[2022-06-15] VITALS (7 sets, daily range): BP systolic 145–164; BP diastolic 79–89; PULSE 43–58; RESP 16–18; O2SAT 97
[2022-06-15 10:55] LABS: Blood Urea Nitrogen 20 mg/dl (9-20); Estimated Glomerular Filt Rate 65 ml/min (>60); GFR (African American) 79 ML/MIN (>60)
== END 2022-06-15 12:40 | disposition home or self-care (01) ==
PROVIDERS: Internal Medicine; PCP Family Medicine; Visit Provider Psychiatry & Neurology Clinical Neurophysiology
DX: G70.00 Myasthenia gravis without (acute) exacerbation (principal)
CPT/HCPCS: 36415; 82565; 84520; 96365; J1459

== ENCOUNTER → 2022-06-20 13:29 | Outpatient (CLI) | payer MEDICARE, SELFPAY ==
--- NOTE | 2022-06-20 13:30 | CT_ITS ---
FINAL REPORT TECHNIQUE: Thin section axial CT with contrast with multiplanar reconstruction CLINICAL HISTORY: aortic root dilation 3.9 cm on echo COMPARISON: June 2016 FINDINGS: Pulmonary vessels enhance in normal fashion without evidence of embolism. Stable fusiform aneurysm of the ascending aorta up to 4.5 cm. No associated dissection. Mild bilateral scarring greatest in the lung bases. No pulmonary mass or infiltrate is present. There is no significant pleural effusion. There is no significant pericardial effusion. No mediastinal or hilar adenopathy is present. Dominant upper pole left renal cyst measures up to 6.7 cm. IMPRESSION: Fusiform aneurysm of the ascending aorta stable since 2015. Reviewed, Interpreted and Dictated by Yenifer Fuller MD Transcribed by Forrest Quesada Authenticated and [facility]
== END ==
PROVIDERS: PCP Family Medicine; Visit Provider Nurse Practitioner Family
DX: E78.2 Mixed hyperlipidemia (principal); I10 Essential (primary) hypertension; I34.0 Nonrheumatic mitral (valve) insufficiency; I77.810 Thoracic aortic ectasia
CPT/HCPCS: 71275; Q9967

== ENCOUNTER 2022-08-10 10:13 | Outpatient (CLI) | payer MEDICARE, OTHER, SELFPAY ==
[2022-08-10 11:04] VITALS: BP 123/80; PULSE 55; RESP 18; O2SAT 96
[2022-08-10 11:34] VITALS: BP 131/73; PULSE 47; RESP 18
[2022-08-10 12:04] VITALS: BP 152/78; PULSE 51; RESP 18
[2022-08-10 12:43] VITALS: BP 128/82; PULSE 64; RESP 18
== END 2022-08-10 12:43 | disposition home or self-care (01) ==
LOC: INF 10:15
PROVIDERS: PCP Family Medicine; Visit Provider Psychiatry & Neurology Clinical Neurophysiology
DX: G70.00 Myasthenia gravis without (acute) exacerbation (principal)
CPT/HCPCS: 96365; J1459

== ENCOUNTER 2022-10-05 09:55 | Outpatient (CLI) | payer MEDICARE, OTHER, SELFPAY ==
[2022-10-05 10:40] VITALS: BP 131/72; PULSE 54; RESP 18; O2SAT 97
[2022-10-05 11:10] VITALS: BP 123/77; PULSE 52; RESP 18
[2022-10-05 12:15] VITALS: BP 158/87; PULSE 65; RESP 18
== END 2022-10-05 12:15 | disposition home or self-care (01) ==
LOC: INF 09:56
PROVIDERS: PCP Family Medicine; Visit Provider Psychiatry & Neurology Clinical Neurophysiology
DX: G70.00 Myasthenia gravis without (acute) exacerbation (principal)
CPT/HCPCS: 96365; J1459

== ENCOUNTER 2022-11-30 09:52 | Outpatient (CLI) | payer MEDICARE, OTHER, SELFPAY ==
[2022-11-30 10:45] VITALS: BP 130/69; PULSE 48; RESP 16; O2SAT 97
[2022-11-30 11:15] VITALS: BP 145/81; PULSE 48; RESP 16
[2022-11-30 11:45] VITALS: BP 152/86; PULSE 51; RESP 16
[2022-11-30 12:15] VITALS: BP 140/78; PULSE 57; RESP 16
[2022-11-30 12:30] VITALS: BP 139/58; PULSE 63; RESP 16
== END 2022-11-30 12:40 | disposition home or self-care (01) ==
LOC: INF 09:54
PROVIDERS: PCP Family Medicine; Visit Provider Psychiatry & Neurology Clinical Neurophysiology
DX: G70.00 Myasthenia gravis without (acute) exacerbation (principal)
CPT/HCPCS: 96365; 96366; J1459

== ENCOUNTER 2023-01-25 10:04 | Outpatient (CLI) | payer MEDICARE, OTHER, SELFPAY ==
[2023-01-25 11:07] VITALS: BP 143/72; PULSE 42; RESP 18; O2SAT 97
[2023-01-25 11:37] VITALS: BP 142/71; PULSE 42; RESP 18
[2023-01-25 12:07] VITALS: BP 171/85; PULSE 56; RESP 18
[2023-01-25 12:23] VITALS: RESP 18
[2023-01-25 12:48] VITALS: BP 148/56; PULSE 59; RESP 18
== END 2023-01-25 12:48 | disposition home or self-care (01) ==
LOC: INF 10:05
PROVIDERS: PCP Family Medicine
DX: G70.00 Myasthenia gravis without (acute) exacerbation (principal)
CPT/HCPCS: 96365

== ENCOUNTER 2023-03-22 09:55 | Outpatient (CLI) | payer MEDICARE, OTHER, SELFPAY ==
[2023-03-22] VITALS (7 sets, daily range): BP systolic 113–125; BP diastolic 63–72; PULSE 50–60; RESP 16; O2SAT 97
== END 2023-03-22 12:35 | disposition home or self-care (01) ==
LOC: INF 09:57
PROVIDERS: PCP Family Medicine; Visit Provider Psychiatry & Neurology Clinical Neurophysiology
DX: G70.00 Myasthenia gravis without (acute) exacerbation (principal)
CPT/HCPCS: 96365; J1459

== ENCOUNTER 2023-05-17 09:45 | Outpatient (CLI) | payer MEDICARE, OTHER, SELFPAY ==
[2023-05-17 10:40] VITALS: BP 150/74; PULSE 82; RESP 18; TEMP 36.8; O2SAT 97
[2023-05-17 11:10] VITALS: BP 142/74; PULSE 81
[2023-05-17 11:40] VITALS: BP 144/72; PULSE 78
[2023-05-17 11:55] VITALS: BP 137/64; PULSE 77; RESP 18
== END 2023-05-17 12:40 | disposition home or self-care (01) ==
LOC: INF 09:47
PROVIDERS: PCP Family Medicine; Visit Provider Psychiatry & Neurology Clinical Neurophysiology
DX: Z51.12 Encounter for antineoplastic immunotherapy (principal); G70.00 Myasthenia gravis without (acute) exacerbation
CPT/HCPCS: 96365; J1459

== ENCOUNTER → 2023-06-29 10:45 | Outpatient (CLI) | payer MEDICARE, OTHER, SELFPAY ==
[2023-06-29 11:47] LABS: Blood Urea Nitrogen 22 mg/dl (9-20); Estimated Glomerular Filt Rate 73 ml/min (>60); GFR (African American) 88 ML/MIN (>60)
== END ==
PROVIDERS: Internal Medicine; PCP Family Medicine; Visit Provider Nurse Practitioner
DX: I10 Essential (primary) hypertension (principal)
CPT/HCPCS: 36415; 82565; 84520

== ENCOUNTER → 2023-07-04 09:58 | Outpatient (CLI) | payer MEDICARE, OTHER, SELFPAY ==
--- NOTE | 2023-07-04 09:58 | CT_ITS ---
FINAL REPORT TECHNIQUE: Thin section axial CT images were obtained from the lung apices to the upper abdomen. IV contrast was administered. MIP 3-D reformats were obtained. This study was performed with techniques to keep radiation doses as low as reasonably achievable (ALARA). Individualized dose reduction techniques using automated exposure control or adjustment of mA and/or kV according to the patient's size were employed. CLINICAL HISTORY: dilatation aortic root COMPARISON: May 2022 FINDINGS: The heart size is normal. There is no adenopathy. The ascending aorta is similar to prior measuring 4.8 x 4.6 cm there is no aortic dissection. There is no pericardial effusion. There is elevation of the left mid diaphragm. There is scarring in the lung bases. Images through the upper abdomen demonstrate gallstones. There are benign-appearing renal cysts measuring up to 6.8 cm on the right and 7.2 cm on the left. IMPRESSION: Stable dilatation of the ascending aorta. Reviewed, Interpreted and Dictated by Juan A Faith MD Transcribed by Forrest Quesada Authenticated and [facility]
--- NOTE | 2023-07-04 10:30 | CA_ITS ---
APPROVED REPORT EXAM: Comprehensive 2D, Doppler, and color-flow Echocardiogram Spice Grinder: Bre Díaz RT(R) Ht: 6 ft 0 in Wt: 208lbs BSA: 2.17 BP: 142/85 mmHg Rhythm: Bradycardia Indications: MR, HTN, DM, hyperlipidemia, myasthenia gravis. Symptomatic bradycardia, abn rhythm noted. 2D Dimensions LA Volume 55.50 mL LA Volume Index 25.58 mL/m2 (M/F) 16-34 EF AP4 51.20 % GL Strain -29.2 % M-Mode Dimensions RVDd 3.69 cm (0.9-2.6) LA Diam 3.44 cm (1.9-4.0) LVDd 4.06 cm (3.5-5.7) LVDs 3.04 cm (3.5-5.7) IVSd 1.07 cm (0.6-1.1) PWd 0.89 cm (0.6-1.1) EF (Teich) 50.10% FS 25.10% EDV (Teich) 72.50 mL ESV (Teich) 36.20 mL LV Diastology E Decel Time 240 (160-240 msec) E/A Ratio 0.8 Aortic Valve HI Index 0.99 cm2/m2 AoV Peak Kofi. 198.0 (50-130 cm/s) AO Peak GR. 15.70 mmHg AO Mean GR. 7.70 (<5 mmHg) AO VTI 46.2 (18-25 cm) HI (VTI) 2.19 (2.5-4.5 cm2) Mitral Valve MV E Max Kofi. 72.0 (40-130 cm/s) MV A Velocity 88.0 (40-130 cm/s) E/A Ratio 0.82 MV PHT 70.0 ms Left Ventricle The left ventricle is normal size. The left ventricular systolic function is low normal. There is increased LV wall thickness. There is borderline global hypokinesis present. Diastolic function is indeterminate. LVEF is 50%. Right Ventricle The right ventricle is normal size. The right ventricular systolic function is normal. Atria The left atrium is mildly dilated. Right atrium is mildly dilated. There is no Doppler evidence of interatrial shunt. Aortic Valve The aortic valve is mildly thickened. Aortic sclerosis, but no aortic stenosis. Mild aortic regurgitation. Mitral Valve The mitral valve leaflets are mildly thickened. No evidence of mitral valve stenosis. Mild mitral regurgitation. Tricuspid Valve The tricuspid valve leaflets are thin and pliable. Trace tricuspid regurgitation. There is insufficient TR jet to estimate RVSP. Pulmonic Valve The pulmonary valve is normal in structure. Trace pulmonic regurgitation. Great Vessels The aortic root is normal in size. The ascending aorta is mildly dilated, measuring 4.3 cm in diameter. IVC is normal in size and collapses >50% with inspiration. Pericardium There is no pericardial effusion. Other Information Study Quality: Fair Conclusion Low normal LV systolic function. Mild biatrial dilatation. Mild MR, mild AI. Mildly dilated ascending aorta (4.3 cm). Compared to prior study from 2020, the ascending aorta is now further dilated. Follow-up with serial imaging is recommended. Electronically signed by : Jessy Naylor MD 07/10/2023 10:07:39
== END ==
PROVIDERS: PCP Family Medicine; Visit Provider Nurse Practitioner
DX: I34.0 Nonrheumatic mitral (valve) insufficiency (principal); I35.1 Nonrheumatic aortic (valve) insufficiency; I51.89 Other ill-defined heart diseases; I77.810 Thoracic aortic ectasia
CPT/HCPCS: 71275; 93306; Q9967

== ENCOUNTER → 2023-07-04 12:08 | Outpatient (CLI) | payer MEDICARE, OTHER, SELFPAY | LOC: RT 12:09 | PROVIDERS: PCP Family Medicine; Visit Provider Nurse Practitioner | DX: R00.1 Bradycardia, unspecified (principal); I35.1 Nonrheumatic aortic (valve) insufficiency; I77.810 Thoracic aortic ectasia; I34.0 Nonrheumatic mitral (valve) insufficiency; I51.89 Other ill-defined heart diseases | CPT/HCPCS: 71275; 93225; 93306; Q9967 ==

== ENCOUNTER → 2023-07-06 12:56 | Outpatient (CLI) | payer MEDICARE, OTHER, SELFPAY | PROVIDERS: PCP Family Medicine; Visit Provider Nurse Practitioner | DX: R00.1 Bradycardia, unspecified (principal) | CPT/HCPCS: 93270 ==

== ENCOUNTER 2023-07-12 09:27 | Outpatient (CLI) | payer MEDICARE, OTHER, SELFPAY ==
[2023-07-12] MEDS: ACETAMINOPHEN 500MG TAB 1000 MG PO (09:40)
[2023-07-12] MEDS: METHYLPREDNISOLONE SOD SUCC 40MG VIAL 40 MG (09:40)
[2023-07-12] MEDS: diphenhydrAMINE 50MG CAPSULE 50 MG PO (09:40)
[2023-07-12 10:15] VITALS: BP 137/85; PULSE 59; RESP 18; O2SAT 97
[2023-07-12] MEDS: 0.9 % SODIUM CHLORIDE 250 ML 100 ML IV (10:15)
[2023-07-12] MEDS: [UNRECOGNIZED DRUG - OTHER] IV (10:36)
[2023-07-12] MEDS: GAMUNEX C IV (10:36)
[2023-07-12 10:45] VITALS: BP 140/76; PULSE 58; RESP 18
[2023-07-12 11:15] VITALS: BP 143/74; PULSE 48; RESP 18
[2023-07-12 11:25] VITALS: RESP 18
[2023-07-12 11:50] VITALS: BP 160/87; PULSE 48; RESP 18; O2SAT 97
== END 2023-07-12 11:50 | disposition home or self-care (01) ==
LOC: INF 09:28
PROVIDERS: PCP Family Medicine; Visit Provider Psychiatry & Neurology Clinical Neurophysiology
DX: G70.00 Myasthenia gravis without (acute) exacerbation (principal); Z51.12 Encounter for antineoplastic immunotherapy
CPT/HCPCS: 96365; J1561

== ENCOUNTER 2023-09-06 09:10 | Outpatient (CLI) | payer MEDICARE, OTHER, SELFPAY ==
[2023-09-06] MEDS: SODIUM CHLORIDE 0.9% 250ML BAG 250 ML IV (09:26)
[2023-09-06] MEDS: diphenhydrAMINE 50MG CAPSULE 50 MG PO (09:26)
[2023-09-06] MEDS: ACETAMINOPHEN 500MG TAB 1000 MG PO (09:26)
[2023-09-06] MEDS: METHYLPREDNISOLONE SOD SUCC 40MG VIAL 40 MG IV (09:27)
[2023-09-06] MEDS: GAMUNEX C IV (10:00)
[2023-09-06] MEDS: IVIG IV (10:00)
[2023-09-06] MEDS: [UNRECOGNIZED DRUG - OTHER] IV (10:00)
[2023-09-06 10:10] VITALS: BP 161/86; PULSE 48; RESP 18; O2SAT 96
[2023-09-06 10:25] VITALS: BP 170/93; RESP 18
[2023-09-06 10:40] VITALS: BP 143/82; PULSE 49; RESP 18
[2023-09-06 10:55] VITALS: BP 155/97; PULSE 48; RESP 18
[2023-09-06 11:10] VITALS: BP 149/98; PULSE 48; RESP 18
[2023-09-06 11:55] VITALS: BP 140/90; PULSE 48; PULSE 49; RESP 18; O2SAT 98
== END 2023-09-06 11:55 | disposition home or self-care (01) ==
LOC: INF 09:11
PROVIDERS: PCP Family Medicine; Visit Provider Psychiatry & Neurology Clinical Neurophysiology
DX: Z51.12 Encounter for antineoplastic immunotherapy (principal); G70.00 Myasthenia gravis without (acute) exacerbation
CPT/HCPCS: 96365; J1459; J1561

== ENCOUNTER 2023-11-01 09:28 | Outpatient (CLI) | payer MEDICARE, OTHER, SELFPAY ==
[2023-11-01] VITALS (7 sets, daily range): BP systolic 126–158; BP diastolic 65–73; PULSE 43–51; RESP 16; TEMP 36.7; O2SAT 97
[2023-11-01] MEDS: diphenhydrAMINE 50MG CAPSULE 50 MG PO (09:42)
[2023-11-01] MEDS: METHYLPREDNISOLONE SOD SUCC 40MG VIAL 40 MG (09:42)
[2023-11-01] MEDS: ACETAMINOPHEN 500MG TAB 1000 MG (09:42)
[2023-11-01] MEDS: 0.9 % SODIUM CHLORIDE 250 ML 100 ML IV (09:42)
[2023-11-01] MEDS: GAMUNEX C IV (10:14)
== END 2023-11-01 12:15 | disposition home or self-care (01) ==
LOC: INF 09:29
PROVIDERS: PCP Family Medicine; Visit Provider Psychiatry & Neurology Clinical Neurophysiology
DX: Z51.12 Encounter for antineoplastic immunotherapy (principal); G70.00 Myasthenia gravis without (acute) exacerbation
CPT/HCPCS: 96365; J1561

== ENCOUNTER 2023-12-27 09:16 | Outpatient (CLI) | payer MEDICARE, OTHER, SELFPAY ==
[2023-12-27] MEDS: ACETAMINOPHEN 500MG TAB 1000 MG PO (09:34)
[2023-12-27] MEDS: 0.9 % SODIUM CHLORIDE 250 ML 500 ML IV (09:34)
[2023-12-27] MEDS: diphenhydrAMINE 50MG CAPSULE 50 MG PO (09:35)
[2023-12-27] MEDS: METHYLPREDNISOLONE SOD SUCC 40MG VIAL 40 MG IV (09:35)
[2023-12-27] MEDS: GAMUNEX C IV (10:10)
[2023-12-27 10:15] VITALS: BP 137/57; PULSE 40; RESP 17; O2SAT 97
[2023-12-27 10:45] VITALS: BP 139/72; PULSE 40; RESP 16
[2023-12-27 11:15] VITALS: BP 149/56; PULSE 41; RESP 16
[2023-12-27 11:45] VITALS: BP 146/68; PULSE 49; RESP 16
[2023-12-27 12:05] VITALS: BP 129/69; PULSE 55; RESP 15
== END 2023-12-27 12:10 | disposition home or self-care (01) ==
LOC: INF 09:17
PROVIDERS: PCP Family Medicine; Visit Provider Psychiatry & Neurology Clinical Neurophysiology
DX: G70.00 Myasthenia gravis without (acute) exacerbation (principal); Z51.12 Encounter for antineoplastic immunotherapy
CPT/HCPCS: 96365; J1561

== ENCOUNTER 2024-02-20 09:37 | Outpatient (CLI) | payer MEDICARE, OTHER, SELFPAY ==
[2024-02-20 09:55] VITALS: BP 134/75; PULSE 54; RESP 18; TEMP 36.7; O2SAT 98
[2024-02-20 10:19] VITALS: BP 125/77; PULSE 47; RESP 18; O2SAT 98
[2024-02-20 10:49] VITALS: BP 136/54; PULSE 54; RESP 18; O2SAT 99
[2024-02-20 11:19] VITALS: BP 137/77; PULSE 51; RESP 18; O2SAT 99
[2024-02-20 11:49] VITALS: BP 139/88; PULSE 54; RESP 18; O2SAT 98
[2024-02-20 12:18] VITALS: BP 144/94; PULSE 53; RESP 18; O2SAT 99
== END 2024-02-20 12:18 | disposition home or self-care (01) ==
LOC: INF 09:38
PROVIDERS: PCP Family Medicine; Visit Provider Psychiatry & Neurology Clinical Neurophysiology
DX: G70.00 Myasthenia gravis without (acute) exacerbation (principal); Z79.899 Other long term (current) drug therapy
CPT/HCPCS: 96365; 96366; J1561; J2919

== ENCOUNTER 2024-07-05 15:09 | Outpatient (CLI) | payer MEDICARE, OTHER, SELFPAY ==
[2024-08-18 07:46] LABS: Miscellaneous Test SCANNED IMAGE
== END 2024-07-05 23:59 | disposition home or self-care (01) ==
LOC: LAB 15:10
PROVIDERS: PCP Family Medicine; Visit Provider Psychiatry & Neurology Clinical Neurophysiology
DX: G70.00 Myasthenia gravis without (acute) exacerbation (principal)
CPT/HCPCS: 36415; 86041; 86042; 86043; 86255

== ENCOUNTER 2025-01-13 08:17 | Outpatient (CLI) | payer MEDICARE, OTHER, SELFPAY ==
--- NOTE | 2025-01-13 08:45 | CT_ITS ---
FINAL REPORT TECHNIQUE: Thin section axial CT with contrast with multiplanar reconstruction This study was performed with techniques to keep radiation doses as low as reasonably achievable, (ALARA). Individualized dose reduction techniques using automated exposure control or adjustment of mA and/or kV according to the patient's size were employed. CLINICAL HISTORY: Ascending aneurysm COMPARISON: 07/04/2023 FINDINGS: Pulmonary vessels enhance in normal fashion without evidence of embolism. The ascending aorta on coronal reconstruction images measures 4.8 cm in size, stable when compared to the prior exam of 2022. The descending thoracic aorta is normal in caliber. No evidence of aortic dissection is seen. No pulmonary mass or infiltrate is present. There is scattered mild scarring present, as well as chronic elevation of the left hemidiaphragm. There is no significant pleural effusion. There is no significant pericardial effusion. No mediastinal or hilar adenopathy is present. Note is made of predominantly left renal cysts and cholelithiasis in the upper abdomen. IMPRESSION: 1. Ascending aortic aneurysm, 4.8 cm in size, stable when compared to the prior exam of 2022. The descending thoracic aorta is normal in caliber, and there is no evidence of aortic dissection. 2. Note is made of predominantly left renal cysts as well as cholelithiasis in the upper abdomen. Reviewed, Interpreted and Dictated by Yenifer Fuller MD Transcribed by Michelle Amezcua Authenticated and [facility]
[2025-01-13] MEDS: IOPAMIDOL-370 (76%);100ML BOTTLE 80 ML IV (08:52)
[2025-01-13] MEDS: SODIUM CHLORIDE 0.9% 10ML SYR (RAD ONLY) 10 ML IV (08:52)
[2025-01-13] MEDS: 0.9 % SODIUM CHLORIDE 50 ML VIAL IV (08:52)
== END 2025-01-13 23:59 | disposition home or self-care (01) ==
LOC: RAD 08:18
PROVIDERS: PCP Family Medicine; Visit Provider Physician Assistant
DX: I71.21 Aneurysm of the ascending aorta, without rupture (principal); N28.1 Cyst of kidney, acquired; K80.20 Calculus of gallbladder without cholecystitis without obstruction; J98.4 Other disorders of lung
CPT/HCPCS: 71275; Q9967

== ENCOUNTER 2025-01-14 09:41 | Emergency (ER) | payer MEDICARE, OTHER, SELFPAY ==
--- OUTSIDE RECORDS SUMMARY | 2024-11-25 08:46 | XMS_ITS | Encounter Summary ---
Author Organization [facility] Address [address] [place] [id number] Care Team Providers Care Title Inspector Name Role Phone Adrien Ponce MD Primary Care Provider [phone] Adrien Claudio MD Unavailable [phone] Reason for Visit * Reason Comments OP Infusion * Episode Based Medications (Routine) - Authorized Specialty Diagnoses / Procedures Referred By Kayla t Referred To Contact Diagnoses Myasthenia gravis Procedures [place] INJECTION, EFGARTIGIMOD CARLITO, 2 MG AND HYALURONIDASE-QVFC Makenna Arredondo MD [address] [address] Phone: tel: fax: Makenna Arredondo MD [address] [address] Phone: tel: fax: Referral ID Status Reason Start Date Expiration Date V isits Requested Visits Authorized [id number] Authorized 11/11/2024 05/13/2026 1 24 Encounter Details Date Type Department Care Team (Latest Contact Info) Description 11/25/2024 8:46 AM EDT - 11/25/2024 11:59 PM EDT Hospital Encounter [facility] [address] [place] [address] Myasthenia gravis (Primary Dx) Discharge Disposition: Home or Self Care Social History Tobacco Use Types Packs/Day Years Used Date Smoking Tobacco: Former Cigarettes 1 43 1 0 - 1982 Smokeless Tobacco: Never Alcohol Use Standard Drinks/Week Comments Never 0 (1 standard drink = 0.6 oz pur e alcohol) Sex and Gender Information Value Date Recorded Sex Assigned at Male 10/29/2021 4:17 PM EDT Legal Sex Male 6:18 PM EDT Gender Identity Male 10/29/2021 4:17 PM EDT Sexual Orientation Straight 10/29/2021 4: 17 PM EDT documented as of this encounter Last Filed Vital Signs Vital Sign Reading Time Taken Comments Blood Pressure 164/90 11/25/2024 10:40 AM EDT Pulse 57 11/25/2024 10:40 AM EDT Temperature 36.8 C (98.3 F) 11/25/2024 8:52 AM EDT Respiratory Rate - - Oxygen Saturation - - Inhaled Oxygen Concentration - - Weight 91.9 kg (202 lb 9.6 oz) 11/25/2024 8:52 A M EDT Height 180.3 cm (5' 11 ) 11/25/2024 8:52 AM EDT Body Mass Index 28.26 11/25/2024 8:52 AM EDT documented in this encounter Medications at Time of Discharge acetaminophen (Tylenol) 500 MG tablet Take 1 tablet (500 mg) by mouth every 6 hours as needed. atorvastatin (Lipitor) 20 MG tablet 10/23/2018 carvedilol (Coreg) 6.25 MG tablet 05/23/2024 Coenzyme Q10 100 MG wafer Take by mouth 1 (one) time each day. CRANBERRY EXTRACT PO Take by mouth. fexofenadine (Ava) 60 MG tablet Take 3 tablets (180 mg) by mouth 1 (one) time each day. 01/05/2022 fexofenadine-pseu doephedrine ER (Ava-D) 60-120 MG 12 hr tablet Take 1 tablet by mouth. losartan-hydroCHL OROthiazide (Hyzaar) 100-25 MG tablet 10/23/2018 Multiple Vitamin (MULTI-VITAMIN DAILY PO) 12/11/2019 mycophenolate (Cellcept) 500 MG tabletIndications :Myasthenia gravis Take 1 tablet (500 mg) by mouth 3 (three) times a day. 270 tablet 3 07/02/2024 06/27/2025 Naproxen Sodium (ALEVE PO) 12/11/2019 Probiotic Product (PROBIOTIC PO) 12/11/2019 pyridostigmine (Mestinon) 60 MG tablet 12/07/2020 documented as of this encounter Miscellaneous Notes * Becca Calix, RN - 11/25/2024 9:03 AM EDT Images from the original note were not included. [id number] Efgartigimod carlito-fcab Injection Brand Name(s): Kameronmikekirstin?? WHY is this medicine prescribed? Efgartigimod carlito-fcab injection is used to treat a certain form of myasthenia gravis (MG; a disorder of the nervous system that causes muscle weakness). Efgartigimod carlito-fcab is in a group of medications called monoclonal antibodies. It works by reducing a certain natural substance in the body that causes symptoms of myasthenia gravis. HOW should this medicine be used? Efgartigimod carlito-fcab comes as a solution (liquid) to be injected slowly into a vein over 60 minutes by a healthcare provider. It is usually given once a week for 4 weeks. This cycle may be repeatedas recommended by your doctor, but no sooner than at least 50 days after your last weekly dose. Thelength of your treatment depends on how well your body responds to the medication and any side effects that you experience. Efgartigimod carlito-fcab injection may cause serious reactions during the infusion or usually within 1 hour after the infusion. Your healthcare provider will watch you carefully while you are receivingefgartigimod carlito-fcab injection and for 1 hour after you receive the medication. Your doctor may slow or stop your infusion if you have a reaction to the medication. If you experience any of the following symptoms, tell your doctor immediately: chest pain; feeling dizzy, lightheaded, or faint; rash; hives; swelling of the eyes, face, lips, tongue, or throat; hoarseness; difficulty breathing or swallowing; chills; shivering; or stomach or back pain. Ask your pharmacist or doctor for a copy of the straightening press operator's information for the patient. Are there OTHER USES for this medicine? This medication may be prescribed for other uses; ask your doctor or pharmacist for more information. What SPECIAL PRECAUTIONS should I follow? Before receiving efgartigimod carlito-fcab injection, ?? tell your doctor and pharmacist if you are allergic to efgartigimod carlito- fcab, any other medications, or any of the ingredients in efgartigimod carlito-fcab injection. Ask your pharmacist for a list of the ingredients. ?? tell your doctor and pharmacist what other prescription and nonprescription medications, vitamins, nutritional supplements, and herbal products you are taking or plan to take. Your doctor may needto change the doses of your medications or monitor you carefully for side effects. ?? tell your doctor if you have an infection or have ever had an infection that keeps coming back or if you have or ever had kidney disease or any other medical conditions. ?? tell your doctor if you are , plan to become , or are breast- feeding. If you become while receiving efgartigimod carlito-fcab injection, call your doctor. ?? if you received efgartigimod carlito-fcab injection while you were and have given , tell your baby's doctor that you received efgartigimod carlito- fcab injection. Efgartigimod carlito-fcab may interfere with your baby's immune response to vaccines. Talk to your baby's doctor about vaccinations for your baby. ?? check with the doctor to see if you need to receive any vaccinations. It is important to have all vaccines appropriate for your age before beginning treatment with efgartigimod carlito-fcab injection. Do not have any vaccinations without talking to your doctor. What SPECIAL DIETARY instructions should I follow? Unless your doctor tells you otherwise, continue your normal diet. What should I do IF I FORGET to take a dose? If you miss an appointment to receive a dose of efgartigimod carlito-fcab injection, call your doctor right away. What SIDE EFFECTS can this medicine cause? Some side effects can be serious. If you experience any of these symptoms, call your doctor immediately: ?? fever, sore throat, chills, cough, or other signs of infection ?? pain or burning on urination or frequent urination ?? rash; hives; difficulty breathing or swallowing; or swelling of the eyes, face, lips, tongue, orthroat Efgartigimod carlito-fcab may cause other side effects. Call your doctor if you have any unusual problems while taking this medication. If you experience a serious side effect, you or your doctor may send a report to the Food and Drug Administration's (FDA) MedWatch Adverse Event Reporting program online (https://www.fda.gov/Safety/MedWatch) or by phone ( ). What should I do in case of OVERDOSE? In case of overdose, call the poison control helpline at . Information is also available online at https://www.poisonhelp.org/help. If the victim has collapsed, had a seizure, has trouble breathing, or can't be awakened, immediately call emergency services at 911. What OTHER INFORMATION should I know? Keep all appointments with your doctor. It is important for you to keep a written list of all of the prescription and nonprescription (arul-abt-vecshxk) medicines you are taking, as well as any products such as vitamins, minerals, or otherdietary supplements. You should bring this list with you each time you visit a doctor or if you areadmitted to a hospital. It is also important information to carry with you in case of emergencies. This report on medications is for your information only, and is not considered individual patient advice. Because of the changing nature of drug information, please consult your physician or pharmacist about specific clinical use. The [place] [employer] represents that the information provided hereunder was formulated with a reasonable standard of care, and in conformity with professional standards in the field. The [employer] makes no representations or warranties, express or implied, including, but not limited to, any implied warranty of merchantability and/or fitness for a particular purpose, with respect to such information and specifically disclaims all such warranties. Users are advised that decisions regarding drug therapy are complex medical decisions requiring the independent, informed decision of an appropriate health pharmacy customer care specialist, and the information is provided for informational purposes only. The entire monograph for a drug should be reviewed for a thorough understanding of the drug's actions, uses and side effects. The [employer] does not endorse or recommend the use of any drug.The information is not a substitute for medical care. AHFS?? Patient Medication Information?. ?? Copyright, 2023. The [employer]??, [address], [address], [place], [place]. All Rights Reserved. Duplication for commercial use must be authorized by [facility]. Selected Revisions: May 12, 2024. AHFS?? Patient Medication Information?. ?? Copyright, 2024 * Pharmacy note - Rosemary Gonzalez PharmD - 11/25/2024 9:00 AM EDT Mr. Shaw has previously received benadryl IV 50mg prior to Vyvgart Hytrulo. Added the order to thenew therapy plan after confirming with Dr. Arredondo. Mr. Shaw later requested to switch to PO benadryl. Replaced IV to PO benadryl. Thank you, Rosemary Gonzalez Pharm.D. [phone] * Addendum Note - Rosemary Gonzalez PharmD - 11/25/2024 9:00 AM EDTEncounter addended by: Rosemary Gonzalez PharmD on: 11/25/2024 2:25 PM Actions taken: Clinical Note Signed * Addendum Note - Rosemary Gonzalez PharmD - 11/25/2024 9:00 AM EDTEncounter addended by: Rosemary Gonzalez PharmD on: 11/29/2024 10:26 AM Actions taken: Clinical Note Signed documented in this encounter Plan of Treatment Upcoming Encounters Date Type Department Care Team (Late st Contact Info) Description 08/05/2025 9:00 AM EST Office Visit [facility] [address] [place] [address] Makenna Arredondo MD [address] [facility] [address] [place] [address] documented as of this encounter Visit Diagnoses Diagnosis Myasthenia gravis- Primary Myasthenia gravis without exacerbation documented in this encounter Administered Medications Inactive Administered Medications - up to 3 most recent administrations Medication Order MAR Action Action Date Dose Rate Site diphenhydrAMINE (Benadryl) injection 50 mg 50 mg, Intravenous, Once, 1 dose, On Mon11/25/24 at 0915, RoutineIndications:Myasthen ia gravis Given 11/25/2024 9:23 AM EDT 50 mg efgartigimod carlito/hyaluronidase-qvfc (Vyvgart Hytrulo) 180-2000 mg-units/ml injection 1,008 mg, Subcutaneous, Once, Indications: Myasthenia Gravis, On Mon11/25/24 at 0930, For 1 dose, Administer using a 25G, 12-inch tubing, PVC winged infusion set with a maximum priming volume of 0.4 mL Allow refrigerated product to reach room temperature prior to administration Choose an injection site on abdomen a minimum of 2 to 3 inches from the navel, avoiding areas with moles or scars, or where skin is red, bruised, or hard. Rotate injection sites for subsequent injections. Administer over a period of 30 to 90 seconds via slow, manual syringe push. Monitor for signs/symptoms of hypersensitivity during administration and for 30 minutes after administrationIndications:M yasthenia Gravis New Bag 11/25/2024 10:06 AM EDT 1,008 mg Right Lower Abdomen documented in this encounter Additional Health Concerns Assessment Noted Time A fall risk assessment has been complete d for the patient 11/25/2024 8:51 AM EDT A Body Mass Index follow-up plan has been documented for the patient 11/25/2024 9:27 AM EDT documented as of this encounter Care Teams Title Inspector Relationship Specialty Start Date End Date Adrien Ponce MD [address] [place] [address] PCP - General 12/04/20 Adrien Claudio MD [address] [place] [address] Consulting Physician Neurology 11/15/21 documented as of this encounter
--- OUTSIDE RECORDS SUMMARY | 2024-12-02 09:36 | XMS_ITS | Encounter Summary ---
Author Organization [facility] Address [address] [place] [id number] Care Team Providers Care Planer Stone Name Role Phone Adrien Ponce MD Primary Care Provider [phone] Adrien Claudio MD Unavailable [phone] Reason for Visit * Reason Comments OP Infusion * Episode Based Medications (Routine) - Authorized Specialty Diagnoses / Procedures Referred By Kayla t Referred To Contact Diagnoses Myasthenia gravis Procedures DE INJECTION, EFGARTIGIMOD CARLITO, 2 MG AND HYALURONIDASE-QVFC Makenna Arredondo MD [address] [address] Phone: tel: fax: Makenna Arredondo MD [address] [address] Phone: tel: fax: Referral ID Status Reason Start Date Expiration Date V isits Requested Visits Authorized [id number] Authorized 11/11/2024 05/13/2026 1 24 Encounter Details Date Type Department Care Team (Latest Contact Info) Description 12/02/2024 9:36 AM EDT - 12/02/2024 11:59 PM EDT Hospital Encounter [facility] [address] [place] [address] Myasthenia gravis (Primary Dx) Discharge Disposition: Home [...] Sign Reading Time Taken Comments Blood Pressure 154/80 12/02/2024 10:51 AM EDT Pulse 47 12/02/2024 10:51 AM EDT Temperature 37.3 C (99.2 F) 12/02/2024 9:51 AM EDT Respiratory Rate 16 12/02/2024 9:51 AM EDT Oxygen Saturation - - Inhaled Oxygen Concentration - - Weight 90.4 kg (199 lb 4.7 oz) 12/02/2024 9:51 A M EDT Height 180.3 cm (5' 11 ) 12/02/2024 9:51 AM EDT Body Mass Index 27.8 12/02/2024 9:51 AM EDT documented in this encounter Medications [...] as of this encounter Miscellaneous Notes * Progress Notes - Taylor Mckeon RN - 12/02/2024 10:00 AM EDT Patient stayed for 15 minutes of the 30 minute recommended time of the post- observation time. Patient tolerated the Vyvgart-Hytrulo with no concerns or symptoms at this time. Educated patient to notify his care team if he does experience any post-infusion symptoms. * Darren Hernandez - Taylor Mckeon RN - 12/02/2024 9:59 AM EDT Images from the original note were not included. [id number] Efgartigimod carlito and Hyaluronidase-qvfc Injection Brand Name(s): Vyvgart?? Hytrulo WHY is this medicine prescribed? Efgartigimod carlito and hyaluronidase-qvfc injection is used to treat a certain form of myasthenia gravis (MG; a disorder of the nervous system that causes muscle weakness). Efgartigimod carlito and hyaluronidase-qvfc injection is also used to treat chronic inflammatory demyelinating polyneuropathy (CIDP; a disorder of the immune and nervous systems). Efgartigimod carlito-fcab is in a group of medications called monoclonal antibodies. It works by reducing a certain natural substance in the body that causes symptoms of myasthenia gravis and chronic inflammatory demyelinating polyneuropathy. Hyaluronidase-qvfc is an endoglycosidase. It helps to keep efgartigimod carlito in the body longer so that the medication will have a greater effect. HOW should this medicine be used? Efgartigimod carlito and hyaluronidase-qvfc injection comes as a solution (liquid) to be injected subcutaneously (just under the skin) into the abdomen (stomach) over 30 to 90 seconds by a healthcare provider. When efgartigimod carlito and hyaluronidase-qvfc injection is given to treat myasthenia gravis,is usually injected once a week for 4 weeks. This cycle may be repeated as recommended by your doctor, but no sooner than at least 50 days after your last weekly dose. When efgartigimod carlito and hyaluronidase-qvfc injection is given to treat chronic inflammatory demyelinating polyneuropathy, it is usually given once a week. The length of your treatment depends on how well your body responds to the medication and any side effects that you experience. Efgartigimod carlito and hyaluronidase-qvfc injection may cause serious reactions, usually within 1 hour after your receive the injection. Your healthcare provider will watch you carefully while you arereceiving efgartigimod carlito and hyaluronidase-qvfc injection and for at least 30 minutes after you receive the medication. If you experience any of the following symptoms, tell your doctor immediately: chest pain; feeling dizzy, lightheaded, or faint; rash; hives; swelling of the eyes, face, lips, tongue, or throat; hoarseness; difficulty breathing or swallowing; chills; shivering; or stomach or back pain. Ask your pharmacist or doctor for a copy of the jury consultant's information for the patient. Are there OTHER USES for this medicine? This medication may be prescribed for other uses; ask your doctor or pharmacist for more information. What SPECIAL PRECAUTIONS should I follow? Before receiving efgartigimod carlito and hyaluronidase-qvfc injection, ?? tell your doctor and pharmacist if you are allergic to efgartigimod carlito, hyaluronidase, any other medications, or any of the ingredients in efgartigimod carlito and hyaluronidase-qvfc injection. Askyour pharmacist for a list of the ingredients. [...] feeding. If you become while receiving efgartigimod carlito and hyaluronidase-qvfc injection, call your doctor. ?? if you received efgartigimod carlito and hyaluronidase-qvfc injection while you were and have given , tell your baby's doctor that you received efgartigimod carlito and hyaluronidase-qvfc injection. Efgartigimod carlito-fcab may interfere with your baby's immune response to vaccines. Talk to your baby's doctor about vaccinations for your baby. ?? check with the doctor to see if you need to receive any vaccinations. It is important to have all vaccines appropriate for your age before beginning treatment with efgartigimod carlito and hyaluronidase-qvfc injection. Do not have any vaccinations without talking to your doctor. What SPECIAL DIETARY instructions should I follow? Unless your doctor tells you otherwise, continue your normal diet. What should I do IF I FORGET to take a dose? If you miss an appointment to receive a dose of efgartigimod carlito and hyaluronidase-qvfc injection,call your doctor right away. What SIDE EFFECTS [...] the eyes, face, lips, tongue, orthroat Efgartigimod carlito and hyaluronidase-qvfc injection may cause other side effects. Call your [...] be awakened, immediately call emergency services at [phone]. What OTHER INFORMATION should I know? Keep all appointments with your doctor. It is important for you to keep a written list of all of the prescription and nonprescription (ygdw-bda-rvywxsb) medicines you are taking, as well as [...] or pharmacist about specific clinical use. The [place] [employer] represents that the information provided hereunder was formulated with a reasonable standard of care, and in conformity with professional standards in the field. The [employer] makes no representations or warranties, express or implied, including, but not limited to, any implied warranty of merchantability and/or fitness for a particular purpose, with respect to such information and specifically disclaims all such warranties. Users are advised that decisions regarding drug therapy are complex medical decisions requiring the independent, informed decision of an appropriate health care professionals, and the information is provided for informational purposes only. The entire monograph for a drug should be reviewed for a thorough understanding of the drug's actions, uses and side effects. The [employer] does not endorse or recommend the use of any drug.The information is not a substitute for medical care. AHFS?? Patient Medication Information?. ?? Copyright, 2023. The [employer]??, [address], [address], [place], [place]. All Rights Reserved. Duplication for commercial use must be authorized by [facility]. Selected Revisions: May 12, 2024. AHFS?? Patient Medication Information?. ?? Copyright, 2024 documented in this encounter Plan of Treatment Upcoming Encounters Date Type Department Care Team (Late st Contact Info) Description 08/05/2025 9:00 AM EST Office Visit [place] [facility] [address] [place] [address] Makenna Arredondo MD [address] [place] [address] documented as of this encounter Visit Diagnoses Diagnosis Myasthenia gravis- Primary Myasthenia gravis without exacerbation documented in this encounter Administered Medications Inactive Administered Medications - up to 3 most recent administrations Medication Order MAR Action Action Date Dose Rate Site diphenhydrAMINE (Benadryl) tablet 50 mg 50 mg, Oral, Once, 1 dose, On Mon12/02/24 at 1000, RoutineIndications:Myasthen ia gravis Given 12/02/2024 9:56 AM EDT 50 mg efgartigimod carlito/hyaluronidase-qvfc (Vyvgart Hytrulo) 180-2000 mg-units/ml injection 1,008 mg, Subcutaneous, Once, Indications: Myasthenia Gravis, On Mon12/02/24 at 1015, For 1 dose, Administer using a 25G, [...] during administration and for 30 minutes after administrationIndications:Erum Mosley [place] 12/02/2024 10:43 AM EDT 1,008 mg Left Lower Abdomen documented in this encounter Additional Health Concerns Assessment Noted Time A fall risk assessment has been complete d for the patient 12/02/2024 9:51 AM EDT A Body Mass Index follow-up plan has been documented for the patient 12/02/2024 9:59 AM EDT documented as of this encounter Care Teams Planer Stone Relationship Specialty Start Date End Date Adrien Ponce MD [address] [place] [address] PCP - General 12/04/20 Adrien Claudio MD [id number] [place] [id number] Consulting Physician Neurology 11/15/21 documented as of this encounter
--- OUTSIDE RECORDS SUMMARY | 2024-12-09 09:35 | XMS_ITS | Encounter Summary ---
Author Organization [facility] Address [address] [place] [id number] Care Team Providers Care Roving Department End Finder Name Role Phone Adrien Ponce MD Primary Care Provider [phone] Adrien Claudio MD Unavailable [phone] Reason for Visit * Reason Comments Injections * Episode Based Medications (Routine) - Authorized Specialty Diagnoses / Procedures Referred By Kayla watters Referred To Contact Diagnoses Myasthenia gravis Procedures [place] INJECTION, EFGARTIGIMOD CARLITO, 2 MG AND HYALURONIDASE-QVFC Makenna Arredondo MD [address] [address] Phone: tel: fax: Makenna Arredondo MD [address] [address] Phone: tel: fax: Referral ID Status Reason Start Date Expiration Date V isits Requested Visits Authorized [id number] Authorized 11/11/2024 05/13/2026 1 24 Encounter Details Date Type Department Care Team (Latest Contact Info) Description 12/09/2024 9:35 AM EDT - 12/09/2024 11:59 PM EDT Hospital Encounter [facility] [address] [place] [address] Myasthenia gravis (Primary Dx) Discharge Disposition: Home [...] Sign Reading Time Taken Comments Blood Pressure 166/83 12/09/2024 10:43 AM EDT Pulse 74 12/09/2024 10:43 AM EDT Temperature 37 C (98.6 F) 12/09/2024 9:39 AM EDT Respiratory Rate 16 12/09/2024 9:39 AM EDT Oxygen Saturation - - Inhaled Oxygen Concentration - - Weight 92.7 kg (204 lb 5.9 oz) 12/09/2024 9:39 A M EDT Height 180.3 cm (5' 11 ) 12/09/2024 9:39 AM EDT Body Mass Index 28.5 12/09/2024 9:39 AM EDT documented in this encounter Medications [...] as of this encounter Miscellaneous Notes * Addendum Note - Tammy Ríos - 12/09/2024 10:00 AM EDTEncounter addended by: Tammy Ríos on: 12/10/2024 10:30 AM Actions taken: Charge Capture section accepted documented in this encounter Plan of Treatment Upcoming Encounters Date Type Department Care Team (Late st Contact Info) Description 08/05/2025 9:00 AM EST Office Visit [place] [facility] [address] [place] [address] Makenna Arredondo MD [address] [facility] [address] [place] [address] documented as of this encounter Visit Diagnoses Diagnosis Myasthenia gravis- Primary Myasthenia gravis without exacerbation documented in this encounter Administered Medications Inactive Administered Medications - up to 3 most recent administrations Medication Order MAR Action Action Date Dose Rate Site diphenhydrAMINE (Benadryl) tablet 50 mg 50 mg, Oral, Once, 1 dose, On Mon12/09/24 at 1000, RoutineIndications:Myasthen ia gravis Given 12/09/2024 9:55 AM EDT 50 mg efgartigimod carlito/hyaluronidase-qvfc (Vyvgart Hytrulo) 180-2000 mg-units/ml injection 1,008 mg, Subcutaneous, Once, Indications: Myasthenia Gravis, On Mon12/09/24 at 1015, For 1 dose, Administer using [...] for 30 minutes after administrationIndications:Erum Mosley New Bag 12/09/2024 10:42 AM EDT 1,008 mg Right Lower Abdomen documented in this encounter Additional Health Concerns Assessment Noted Time A fall risk assessment has been complete d for the patient 12/09/2024 9:39 AM EDT A Body Mass Index follow-up plan has been documented for the patient 12/09/2024 10:02 AM EDT documented as of this encounter Care Teams Roving Department End Finder Relationship Specialty Start Date End Date Adrien Ponce MD [address] [place] [address] PCP - General 12/04/20 Adrien Claudio MD [address] [facility] [address] [place] [address] Consulting Physician Neurology 11/15/21 documented as of this encounter
--- OUTSIDE RECORDS SUMMARY | 2024-12-17 10:44 | XMS_ITS | Encounter Summary ---
Author Organization [facility] Address [address] [place] [address] Care Team Providers Care Tying Machine Operator Lumber Name Role Phone Adrien Ponce MD Primary Care Provider [phone] Adrien Claudio MD Unavailable [phone] Reason for Visit * Episode Based Medications (Routine) - Authorized Specialty Diagnoses / Procedures Referred By Contcony t Referred To Contact Diagnoses Myasthenia gravis Procedures [place] INJECTION, EFGARTIGIMOD CARLITO, 2 MG AND HYALURONIDASE-QVFC Makenna Arredondo MD [address] [address] Phone: tel: fax: Makenna Arredondo MD [address] [address] Phone: tel: fax: Referral ID Status Reason Start Date Expiration Date V isits Requested Visits Authorized [id number] Authorized 11/11/2024 05/13/2026 1 24 Encounter Details Date Type Department Care Team (Latest Contact Info) Description 12/17/2024 10:44 AM EDT - 12/17/2024 11:59 PM EDT Hospital Encounter [facility] [address] [place] [address] Myasthenia gravis (Primary Dx) Discharge Disposition: Home [...] Sign Reading Time Taken Comments Blood Pressure 171/80 12/17/2024 11:59 AM EDT Pulse 49 12/17/2024 11:59 AM EDT Temperature 36.8 C (98.3 F) 12/17/2024 10:51 AM EDT Respiratory Rate 16 12/17/2024 10:51 AM EDT Oxygen Saturation - - Inhaled Oxygen Concentration - - Weight 93.1 kg (205 lb 4 oz) 12/17/2024 10:51 AM EDT Height 180.3 cm (5' 11 ) 12/17/2024 10:51 AM EDT Body Mass Index 28.63 12/17/2024 10:51 AM EDT documented in this encounter Medications [...] as of this encounter Miscellaneous Notes * Amberly Roth RN - 12/17/2024 11:09 AM EDT Images from the original note were not included. [id number] Efgartigimod carlito and Hyaluronidase-qvfc Injection Brand Name(s): [...] or doctor for a copy of the coordinate measuring equipment operator's information for the patient. Are there [...] be awakened, immediately call emergency services at [phone]. What OTHER INFORMATION should I know? Keep all appointments with your doctor. It is important for you to keep a written list of all of the prescription and nonprescription (cwla-idv-xrfekir) medicines you are taking, as well as [...] or pharmacist about specific clinical use. The [employer] represents that the information provided hereunder was formulated with a reasonable standard of care, and in conformity with professional standards in the field. The [employer] makes no representations or warranties, express or implied, including, but not limited to, any implied warranty of merchantability and/or fitness for a particular purpose, with respect to such information and specifically disclaims all such warranties. Users are advised that decisions regarding drug therapy are complex medical decisions requiring the independent, informed decision of an appropriate health respiratory care practitioner, and the information is provided for informational purposes only. The entire monograph for a drug should be reviewed for a thorough understanding of the drug's actions, uses and side effects. The [employer] does not endorse or recommend the use of any drug.The information is not a substitute for medical care. AHFS?? Patient Medication Information?. ?? Copyright, 2023. The [employer]??, [address], [address], [place], [place]. All Rights Reserved. Duplication for commercial use must be authorized by [facility]. Selected Revisions: May 12, 2024. AHFS?? Patient Medication Information?. ?? Copyright, 2024 * Progress Notes - Amberly Davies RN - 12/17/2024 11:00 AM EDT Informed patient that observation period is recommended per the physician order; however Patient declined to stay for full observation period. Advised and verbalized signs and symptoms of a reaction and when to call the physician or call 911. Patient tolerated Vyvgart Hytrulo without symptoms of adverse reaction and left clinic in stable condition with follow up appt in hand. documented in this encounter Plan of Treatment Upcoming Encounters Date Type Department Care Team (Late st Contact Info) Description 08/05/2025 9:00 AM EST Office Visit [place] [facility] [address] [place] [address] Makenna Arredondo MD [address] [place] [address] documented as of this encounter Visit Diagnoses Diagnosis Myasthenia gravis- Primary Myasthenia gravis without exacerbation documented in this encounter Administered Medications Inactive Administered Medications - up to 3 most recent administrations Medication Order MAR Action Action Date Dose Rate Site diphenhydrAMINE (Benadryl) tablet 50 mg 50 mg, Oral, Once, 1 dose, On Mon12/17/24 at 1115, RoutineIndications:Myasthen ia gravis Given 12/17/2024 10:58 AM EDT 50 mg efgartigimod carlito/hyaluronidase-qvfc (Vyvgart Hytrulo) 180-2000 mg-units/ml injection 1,008 mg, Subcutaneous, Once, Indications: Myasthenia Gravis, On Mon12/17/24 at 1130, For 1 dose, Administer using a 25G, [...] administration and for 30 minutes after administrationIndications:Erum Turneris New Bag 12/17/2024 11:46 AM EDT 1,008 mg Right Lower Abdomen documented in this encounter Additional Health Concerns Assessment Noted Time A fall risk assessment has been complete d for the patient 12/17/2024 10:52 AM EDT A Body Mass Index follow-up plan has been documented for the patient 12/17/2024 11:09 AM EDT documented as of this encounter Care Teams Tying Machine Operator Lumber Relationship Specialty Start Date End Date Adrien Ponce MD [address] [place] [address] PCP - General 12/04/20 Adrien lCaudio MD [address] [place] [address] Consulting Physician Neurology 11/15/21 documented as of this encounter
[2025-01-14 09:50] VITALS: BP 203/110; PULSE 68; RESP 20; TEMP 36.7; O2SAT 97; BMI 28.7
--- OUTSIDE RECORDS SUMMARY | 2025-01-14 09:52 | XMS_ITS | Clinical Summary ---
Author Organization [facility] Address [address] [place] [address] Care Team Providers Care Communication Clerk Name Role Phone Adrien Ponce MD Primary Care Provider [phone] Adrien Claudio MD Unavailable [phone] Allergies Active Allergy Reactions Criticality Noted Date Comments 2,4-D Dimethylamine Other - please document in the comment field Low 06/20/2018 weigh risk/benefit in myasthenia gravis patient Amlodipine Unknown - Patient states they do not know rxn details High 06/14/2022 Beta Adrenergic Blockers Other - please document in the comment field Low 06/20/2018 weigh risk/benefit in myasthenia gravis patient Diltiazem Unknown - Patient states they do not know rxn details High 06/14/2022 Magnesium Sulfate Other - please document in the comment field Low 06/20/2018 weigh risk/benefit in myasthenia gravis patient Medications Naproxen Sodium (ALEVE PO) 12/11/2019 Active atorvastatin (Lipitor) 20 MG tablet 10/23/2018 Active losartan-hydroC HLOROthiazide (Hyzaar) 100-25 MG tablet 10/23/2018 Active Probiotic Product (PROBIOTIC PO) 12/11/2019 Acti ve pyridostigmine (Mestinon) 60 MG tablet 12/07/2020 Active Multiple Vitamin (MULTI-VITAMIN DAILY PO) 12/11/2019 Active fexofenadine-ps eudoephedrine ER (Ava-D) 60-120 MG 12 hr tablet Take 1 tablet by mouth. Active CRANBERRY EXTRACT PO Take by mouth. Active Coenzyme Q10 100 MG wafer Take by mouth 1 (one) time each day. Active fexofenadine (Ava) 60 MG tablet Take 3 tablets (180 mg) by mouth 1 (one) time each day. 01/05/2022 Active carvedilol (Coreg) 6.25 MG tablet 05/23/2024 Active acetaminophen (Tylenol) 500 MG tablet Take 1 tablet (500 mg) by mouth every 6 hours as needed. Active mycophenolate (Cellcept) 500 MG tabletIndicatio ns:Myasthenia gravis Take 1 tablet (500 mg) by mouth 3 (three) times a day. 270 tablet 3 07/02/2024 Active Active Problems Problem Noted Date Diagnosed Date Myasthenia gravis 01/11/2021 Carpal tunnel syndrome 06/19/2019 Peripheral neuropathy 06/19/2019 Encounters Date Type Department Care Team Description 12/17/2024 10:44 AM EDT - 12/17/2024 11:59 PM EDT Hospital Encounter [facility] [address] [address] Myasthenia gravis (Primary Dx) Discharge Disposition: Home or Self Care 12/17/2024 Travel 12/13/2024 Telephone [facility] Infusion [address] [place] [address] Margarita Davis, KANNAN, DNP 12/09/2024 9:35 AM EDT - 12/09/2024 11:59 PM EDT Hospital Encounter [facility] [address] [address] Myasthenia gravis (Primary Dx) Discharge Disposition: Home or Self Care 12/09/2024 Travel 12/02/2024 9:36 AM EDT - 12/02/2024 11:59 PM EDT Hospital Encounter [facility] [address] [address] Myasthenia gravis (Primary Dx) Discharge Disposition: Home or Self Care 12/02/2024 Travel 11/28/2024 Travel 11/25/2024 8:46 AM EDT - 11/25/2024 11:59 PM EDT Hospital Encounter [facility] [address] [address] Myasthenia gravis (Primary Dx) Discharge Disposition: Home or Self Care 11/25/2024 Travel 11/20/2024 Travel 10/18/2024 Orders Only [place] [facility] [address], [address] [place] [address] Makenna Arredondo MD Myasthenia gravis (CMS/HCC) (Primary Dx) 10/18/2024 Telephone [facility] Infusion [address] [place] [address] Lorna Caruso, venetian blind installer 10/14/2024 7:35 AM EDT - 10/14/2024 11:59 PM EDT Hospital Encounter [facility] [address] [place] [address] Myasthenia gravis (CMS/HCC) (Primary Dx) Discharge Disposition: Home or Self Care 10/14/2024 Travel from Last 3 Months Immunizations Immunization Administration Dates Next Due IG 06/22/2018, 8,06/20/2018,2017,06/19/2018,06/18/2018 Influenza, high-dose, quadrivalent 04/19/2016 Moderna COVID-19 Vaccine (Re d Cap) 12+ years 09/25/2020 Pneumococcal, Unspecified 04/27/2016 Zoster, Recombinant 04/18/2018,01/26/2018 Family History Medical History Relation Name Comments Vision loss Father Multiple sclerosis Mother Breast cancer Sister Relation Name Status Comments Father Mother Sister Social History Tobacco Use Types Packs/Day Years Used Date Smoking Tobacco: Former Cigarettes 1 43 1 940 - 1982 Smokeless Tobacco: Never Tobacco Cessation:Counseling Given: Not Answered Alcohol Use Standard Drinks/Week Comments Never 0 (1 standard drink = 0.6 oz pur e alcohol) Sex and Gender Information Value Date Recorded Sex Assigned at Male 10/29/2021 4:17 PM EDT Legal Sex Male 6:18 PM EDT Gender Identity Male 10/29/2021 4:17 PM EDT Sexual Orientation Straight 10/29/2021 4: 17 PM EDT Last Filed Vital Signs Vital Sign Reading Time Taken Comments Blood Pressure 171/80 12/17/2024 11:59 AM EDT Pulse 49 12/17/2024 11:59 AM EDT Temperature 36.8 C (98.3 F) 12/17/2024 10:51 AM EDT Respiratory Rate 16 12/17/2024 10:51 AM EDT Oxygen Saturation 100% 10/14/2024 7:44 AM EDT Inhaled Oxygen Concentration - - Weight 93.1 kg (205 lb 4 oz) 12/17/2024 10:51 AM EDT Height 180.3 cm (5' 11 ) 12/17/2024 10:51 AM EDT Body Mass Index 28.63 12/17/2024 10:51 AM EDT Plan of Treatment Upcoming Encounters Date Type Department Care Team (Late st Contact Info) Description 08/05/2025 9:00 AM EST Office Visit [place] [facility] [address], [address] [place] [address] Makenna Arredondo MD [address] [place] [address] Health Maintenance Due Date Last Done Comments [facility]-Depression Screening 1950 [facility]-Infant/Child/Adol SDOH Screenings 1950 [facility]- SDOH Screenings 01/22/1966 [facility]-Adult SDOH Screenings 01/22/1966 [facility]-DTaP,Tdap,and Td Vaccines (1 - Tdap) 01/22/1967 [facility]-Pneumococcal Vaccine: 50+ Years (1 of 1 - PCV) 01/22/1998 04/27/2016 [id number] Vaccine ( season) 2024 04/22/2023, 04/27/2022, 10/25/2021, Additional history exists [facility]-Medicare Annual Wellness (AWV) 07/12/2025 07/12/2024, 07/11/2023, 07/07/2022 [facility]-Zoster Vaccines Completed 04/18/2018, 8 [facility]-Hepatitis C Screening Completed 10/12/2020, [facility]-RSV Vaccine: 60+ Years or Completed 05/08/2023 [facility]-Influenza Vaccine Completed 04/08/2024 , 04/13/2023, 05/10/2022, Additional history exists [facility]-Obesity Intervention Completed 025, 12/17/2024, 12/09/2024, Additional history exists HPV Vaccines Aged Out No longer eligi ble based on patient's age to complete this topic [facility]-HIB Vaccines Aged Out No longer e ligible based on patient's age to complete this topic [facility]-Hepatitis A Vaccines Aged Out No longer eligible based on patient's age to complete this topic [facility]-IPV Vaccines Aged Out No longer e ligible based on patient's age to complete this topic [facility]-Rotavirus Vaccines Aged Out No lo nger eligible based on patient's age to complete this topic Procedures Procedure Name Priority Date/Time Associated Diagnosis Comments HEPATITIS C ANTIBODY - ED W/REFLEX TO HCV QUANT PCR Routine 10/12/2020 5:20 PM EDT from Last 3 Months or Most Recently Relevant to Health Maintenance Results * Robert Hepatitis C Antibody (10/12/2020 5:20 PM EDT) Joffre Hepatitis C Ab NEGATIVE Reference Range: Negative SUNQUEST 10/12/2020 5:20 PM EDT 10/12/2020 5:23 PM EDT Kit Mercado LAB BLOOD ORDERABLES Final Resul t SUNQUEST from Last 3 Months or Most Recently Relevant to Health Maintenance Insurance [employer] MEDICARE Care Teams Communication Clerk Relationship Specialty Start Date End Date Adrien Ponce MD [address] [place] [address] PCP - General 12/04/20 Adrien Claudio MD [address] [facility] [address] [place] [address] Consulting Physician Neurology 11/15/21
--- OUTSIDE RECORDS SUMMARY | 2025-01-14 09:52 | XMS_ITS | Encounter Summary ---
Author Organization Healthcare Address [address] [place] [address] Care Team Providers Care Performance Management Consultant Name Role Phone Adrien Ponce MD Primary Care Provider [phone] Adrien Claudio MD Unavailable [phone] Encounter Details Date Type Department Care Team (Latest Contact Info) Description 12/09/2024 Travel Social History Tobacco Use Types Packs/Day Years Used Date Smoking Tobacco: Former Cigarettes 1 43 1 940 - 1982 Smokeless Tobacco: Never Alcohol Use Standard Drinks/Week Comments Never 0 (1 standard drink = 0.6 oz pur e alcohol) Sex and Gender Information Value Date Recorded Sex Assigned at Male 10/29/2021 4:17 PM EDT Legal Sex Male 6:18 PM EDT Gender Identity Male 10/29/2021 4:17 PM EDT Sexual Orientation Straight 10/29/2021 4: 17 PM EDT documented as of this encounter Plan of Treatment Upcoming Encounters Date Type Department Care Team (Late st Contact Info) Description 08/05/2025 9:00 AM EST Office Visit [place] [facility] [address] [place] [address] Makenna Arredondo MD [address] [place] [address] documented as of this encounter Visit Diagnoses Not on filedocumented in this encounter Additional Health Concerns Assessment Noted Time A fall risk assessment has been complete d for the patient 12/09/2024 9:39 AM EDT A Body Mass Index follow-up plan has been documented for the patient 12/09/2024 10:02 AM EDT documented as of this encounter Care Teams Performance Management Consultant Relationship Specialty Start Date End Date Adrien Ponce MD [address] [place] [address] PCP - General 12/04/20 Adrien Claudio MD [address] [facility] [address] [place] [address] Consulting Physician Neurology 11/15/21 documented as of this encounter
--- OUTSIDE RECORDS SUMMARY | 2025-01-14 09:52 | XMS_ITS | Encounter Summary ---
Author Organization [facility] Address [address] [place] [address] Care Team Providers Care Cutter Grinder Operator Name Role Phone Adrien Ponce MD Primary Care Provider [phone] Adrien Claudio MD Unavailable [phone] Encounter Details Date Type Department Care Team (Latest Contact Info) Description 12/02/2024 Travel Social History Tobacco Use Types Packs/Day [...] [address] [place] [address] Makenna Arredondo MD [address] [place] [address] documented as of this encounter Visit Diagnoses Not on filedocumented in this encounter Additional Health Concerns Assessment Noted Time A fall risk assessment has been complete d for the patient 12/02/2024 9:51 AM EDT A Body Mass Index follow-up plan has been documented for the patient 12/02/2024 9:59 AM EDT documented as of this encounter Care Teams Cutter Grinder Operator Relationship Specialty Start Date End Date Adrien Ponce MD [address] [place] [address] PCP - General 12/04/20 Adrien Claudio MD [address] [facility] [address] [place] [address] Consulting Physician Neurology 11/15/21 documented as of this encounter
--- OUTSIDE RECORDS SUMMARY | 2025-01-14 09:52 | XMS_ITS | Encounter Summary ---
Author Organization Healthcare Address [address] [place] [address] Care Team Providers Care Sap Bpc Developer Name Role Phone Adrien Ponce MD Primary Care Provider [phone] Adrien Claudio MD Unavailable [phone] Encounter Details Date Type Department Care Team (Latest Contact Info) Description 11/20/2024 Travel Social History Tobacco Use Types Packs/Day [...] [address] [place] [address] Makenna Arredondo MD [address] [place] [address] documented as of this encounter Visit Diagnoses Not on filedocumented in this encounter Additional Health Concerns Assessment Noted Time A fall risk assessment has been complete d for the patient 10/14/2024 7:44 AM EDT A Body Mass Index follow-up plan has been documented for the patient 10/07/2024 7:40 AM EDT documented as of this encounter Care Teams Sap Bpc Developer Relationship Specialty Start Date End Date Adrien Ponce MD [address] [place] [address] PCP - General 12/04/20 Adrien Claudio MD [address] [facility] [address] [place] [address] Consulting Physician Neurology 11/15/21 documented as of this encounter
--- OUTSIDE RECORDS SUMMARY | 2025-01-14 09:52 | XMS_ITS | Encounter Summary ---
Author Organization [facility] Address [address] [place] [address] Care Team Providers Care Personal Fitness Trainer Name Role Phone Adrien Ponce MD Primary Care Provider [phone] Adrien Claudio MD Unavailable [phone] Encounter Details Date Type Department Care Team (Latest Contact Info) Description 11/25/2024 Travel Social History Tobacco Use Types Packs/Day [...] [address] [place] [address] Makenna Arredondo MD [address] [place] [address] documented as of this encounter Visit Diagnoses Not on filedocumented in this encounter Additional Health Concerns Assessment Noted Time A fall risk assessment has been complete d for the patient 11/25/2024 8:51 AM EDT A Body Mass Index follow-up plan has been documented for the patient 11/25/2024 9:27 AM EDT documented as of this encounter Care Teams Personal Fitness Trainer Relationship Specialty Start Date End Date Adrien Ponce MD [address] [place] [address] PCP - General 12/04/20 Adrien Claudio MD [address] [facility] [address] [place] [address] Consulting Physician Neurology 11/15/21 documented as of this encounter
--- OUTSIDE RECORDS SUMMARY | 2025-01-14 09:52 | XMS_ITS | Encounter Summary ---
Author Organization [facility] Address [address] [place] [address] Care Team Providers Care Machine Assembler Name Role Phone Adrien Ponce MD Primary Care Provider [phone] Adrien Claudio MD Unavailable [phone] Encounter Details Date Type Department Care Team (Latest Contact Info) Description 12/17/2024 Travel Social History Tobacco Use Types Packs/Day [...] [address] [place] [address] Makenna Arredondo MD [address] [place] [address] documented as of this encounter Visit Diagnoses Not on filedocumented in this encounter Additional Health Concerns Assessment Noted Time A fall risk assessment has been complete d for the patient 12/17/2024 10:52 AM EDT A Body Mass Index follow-up plan has been documented for the patient 12/17/2024 11:09 AM EDT documented as of this encounter Care Teams Machine Assembler Relationship Specialty Start Date End Date Adrien Ponce MD [address] [place] [address] PCP - General 12/04/20 Adrien Claudio MD [address] [facility] [address] [place] [address] Consulting Physician Neurology 11/15/21 documented as of this encounter
--- OUTSIDE RECORDS SUMMARY | 2025-01-14 09:52 | XMS_ITS | Encounter Summary ---
Author Organization [facility] Address [address] [place] [address] Care Team Providers Care New Accounts Clerk Name Role Phone Adrien Ponce MD Primary Care Provider [phone] Adrien Claudio MD Unavailable [phone] Encounter Details Date Type Department Care Team (Late st Contact Info) Description 12/13/2024 Telephone [facility] Infusion [address] [place] [address] Margarita Davis APRN, [facility] [address] [address] Social History Tobacco Use Types Packs/Day Years [...] PM EDT documented as of this encounter Miscellaneous Notes * Telephone Encounter - Margarita Davis APRN, [facility] - 12/13/2024 3:34 PM EDT [facility] Pre-Infusion Screening Severiano Shaw has an appointment for vyvgart injection on 12/17/2024. ARCHITECTURAL DESIGN PROFESSOR called patient to complete pre-infusion screening questions. Unable to speak with patient. Left voicemail to remind patient of appt date, time, and location. Duration of phone call: 1 minutes Margarita Davis APRN, DNP [facility] documented in this encounter Plan of Treatment Upcoming Encounters Date Type Department Care Team (Late st Contact Info) Description 08/05/2025 9:00 AM EST Office Visit [place] [facility] [address] [place] [address] Makenna Arredondo MD [address] [address] documented as of this encounter Visit Diagnoses Not on filedocumented in this encounter Additional Health Concerns Assessment Noted Time A fall risk assessment has been complete d for the patient 12/09/2024 9:39 AM EDT A Body Mass Index follow-up plan has been documented for the patient 12/09/2024 10:02 AM EDT documented as of this encounter Care Teams New Accounts Clerk Relationship Specialty Start Date End Date Adrien Ponce MD [address] [place] [address] PCP - General 12/04/20 Adrien Claudio MD [address] [id number] Consulting Physician Neurology 11/15/21 documented as of this encounter
--- OUTSIDE RECORDS SUMMARY | 2025-01-14 09:52 | XMS_ITS | Encounter Summary ---
Author Organization [facility] Address [address] [place] [address] Care Team Providers Care Electric Crane Operator Name Role Phone Adrien Ponce MD Primary Care Provider [phone] Adrien Claudio MD Unavailable [phone] Encounter Details Date Type Department Care Team (Latest Contact Info) Description 11/28/2024 Travel Social History Tobacco Use Types Packs/Day [...] [address] [place] [address] Makenna Arredondo MD [address] [place] [address] documented as of this encounter Visit Diagnoses Not on filedocumented in this encounter Additional Health Concerns Assessment Noted Time A fall risk assessment has been complete d for the patient 11/25/2024 8:51 AM EDT A Body Mass Index follow-up plan has been documented for the patient 11/25/2024 9:27 AM EDT documented as of this encounter Care Teams Electric Crane Operator Relationship Specialty Start Date End Date Adrien Ponce MD [address] [place] [address] PCP - General 12/04/20 Adrien Claudio MD [address] [facility] [address] [place] [address] Consulting Physician Neurology 11/15/21 documented as of this encounter
--- NOTE | 2025-01-14 10:20 | HMH.EDGENADL ---
Discharge Plan Disposition Patient Disposition: Home, Self-Care Prescriptions Prescriptions: No Action Hector Sabao 1,008 mg-11,200 unit/5.6 mL solution 5.6 ml SQ WEEKLY pyridostigmine bromide 60 mg tablet 60 mg PO 6XD Qty: 540 3RF Rx Instructions: TAKE 60 MG AT 0700, 1500, 2300, 1100,1900, 0300 mycophenolate mofetil [CellCept] 250 mg capsule 500 mg PO TID fexofenadine-pseudoephedrine [Ava-D 12 Hour] 60-120 mg tablet extended release 12 hr 1 tab PO ONCE Patient Comments: TAKE 1 TABLET BY MOUTH ONCE DAILY atorvastatin 20 mg tablet 20 mg PO DAILY Qty: 90 3RF losartan-hydrochlorothiazide 100-25 mg tablet 1 tab PO DAILY Qty: 90 3RF carvedilol 6.25 mg tablet 6.25 mg PO BID Qty: 180 3RF Rx Instructions: must administer with a meal/food L.acidoph,paracasei,B.animalis 1 EACH capsule 1 each PO BID multivitamin 1 EACH tablet 1 each PO DAILY Referrals Follow up/Referrals: Adrien Ponce MD [Primary Care Provider, Medical] - See instructions Activity Restrictions/Add. Instructions Additional Instructions/Restrictions: Stitches to come out in about 10 days. Do not submerge in fresh water (lakes, streams, olea, ponds, etc. for the next 72 hours). Any signs of infection, return to the emergency department or your family doctor for further evaluation for need for antibiotics. Clinical Impressions Clinical Impression: Laceration of finger Instructions Patient Instructions: DI for Laceration Repair Print Language Print Language: Danish Discharge ED Provider: Roberth Barrera General Adult HPI General Chief complaint: Wound/Laceration Stated complaint: AO 01/14 cut to left pointer finger Time Seen by Provider: 01/14/25 09:51 Mode of Arrival: Ambulatory Source of Information: Patient and Spouse Description of Symptoms (Recalled from ER Triage Doc. by RN): pt was trimming tree this morning with mini chain saw and cut left index finger, wound is clean bleeding controlled and edges are approxiamte History of Present Illness HPI narrative: Please note that above description of symptoms, in this electronic medical record under categorization of recalled from ER triage doctor by RN are reflective of an initial nursing assessment, however, is not reflective of my full history and physical exam that was personally taken and clarified. Consequentially, this preceding description of symptoms, which may include the patient's categorized chief complaint in the EMR, do not reflect my personal clinical impression, and the ultimate description of history of present illness and patient stated complaints should be deferred to this section of the note. Unless stated otherwise or congruent with this section of the note, additional signs, symptoms, or incongruence should be interpreted as inaccurate with my clinical impression. Related Data Home Medications ?Medication ?Instructions ?Recorded ?Confirmed L.acidoph,paracasei,B.animalis 10 1 each PO BID Supplement 07/11/18 12/30/24 billion cell capsule multivitamin 1 each PO DAILY Supplement 08/29/19 12/30/24 mycophenolate mofetil 250 mg 500 mg PO TID auto immune 12/14/20 12/30/24 capsule (CellCept) fexofenadine 60 mg-pseudoephedrine 1 tab PO ONCE 06/14/23 12/30/24 ER 120 mg tablet,ext.release,12 hr (Ava-D 12 Hour) efgartigimod carlito 1008 5.6 ml SQ WEEKLY 12/02/24 12/30/24 [id number] 11,200 unit/5.6 mL subcut soln (Vyvgart Hytrulo) Previous Rx's ?Medication ?Instructions ?Recorded atorvastatin 20 mg tablet 20 mg PO DAILY High cholesterol 12/25/23 #90 tabs losartan 100 1 tab PO DAILY blood pressure #90 12/25/23 mg-hydrochlorothiazide 25 mg tablet tabs pyridostigmine bromide 60 mg tablet 60 mg PO 6XD mysthenia gravis #540 12/02/24 tabs carvedilol 6.25 mg tablet 6.25 mg PO BID Hypertension #180 01/08/25 tabs Allergies Allergy/AdvReac Type Severity Reaction Status Date / Time amlodipine AdvReac Severe Verified 12/30/24 09:31 diltiazem AdvReac Severe Verified 12/30/24 09:31 [facility] Disclaimer: The information contained in this section may have been updated after the patient was seen, as this information can be updated by other users. Medical History (Updated 01/14/25 @ 10:22 by Roberth Barrera MD) Mixed hyperlipidemia Presence of neurostimulator Sinus problem Arthritis Peripheral neuropathy Hx: UTI (urinary tract infection) Overactive bladder Arrhythmia Aortic root dilatation Myasthenia gravis HLD (hyperlipidemia) HTN (hypertension) Mild mitral regurgitation Diastolic dysfunction Edema Dyspnea Surgical History History of carpal tunnel surgery of left wrist History of tonsillectomy Hx of bilateral cataract extraction Hx of colonoscopy History of bilateral carpal tunnel release Family History Other Family history of MS (multiple sclerosis) Family history of cancer Social History Smoking Status: Never smoker alcohol intake: current alcohol intake frequency: 0-2 drinks per day counseling provided: none substance use type: denies use current occupational status: retired Travel in the last 8 weeks?: None household members: spouse housing: house current occupational exposures/hazards: No caffeine: Yes Have you lived/traveled outside US in past 30 days?: No Contact w/someone who lives/traveled outside US past 30 days?: No Exposure to someone with infectious disease in past 14 days?: No Do you have a fever (greater than 100.4 F or 38 C)?: No Have you tested positive for COVID-19?: No Exposed to someone with COVID-19 in past 14 days?: No Do you have a sore throat?: No Do you have a cough?: No Do you have any weakness?: No Do you have any diarrhea?: No Are you experiencing any unusual bleeding?: No Do you have any muscle aches/pain?: No Do you have any abdominal pain?: No Are you experiencing loss of taste or smell?: No Other Medical History Have you received the Flu Vaccine for this season: Yes Have you received the Pneumonia Vaccine: Yes ROS Obtained: Yes All systems reviewed & no additional complaints except as documented Physical Exam General General appearance: alert and in no apparent distress Head Head exam: atraumatic and normocephalic Eye Eye exam: Present normal appearance, PERRL and EOMI Neck Neck exam: Present normal inspection, full ROM and trachea midline Respiratory Respiratory exam: Absent respiratory distress, wheezes, stridor, accessory muscle use or prolonged expiratory phase Cardiovascular Cardiovascular exam: Present other (Pulses equal symmetric in upper and lower extremities) Abdominal Exam Abdominal exam: Present soft; Absent distention, tenderness or pulsatile mass Extremities Exam Extremities exam: Present other (L pointer finger 1 cm laceration on palmar aspect of 1st phalanx); Absent edema Neurological Exam Neurological exam: Present alert, oriented X3 and CN II-XII intact; Absent motor sensory deficit Skin Skin exam: Present warm and dry; Absent diaphoresis or erythema Medical Decision Making Medical Records Medical records reviewed: Yes I reviewed the patient's medical records. Screening: Per USPSTF and CDC recommendations, given the prevalence of disease in our region, it is our hospital?s policy to screen for HIV and viral Hepatitis for all patients aged 18 and over and those with ongoing risk factors. Moshe Inquiry Pt receiving controlled substance: No Moshe was queried for this patient: No Vital Signs: 01/14/25 09:50 Temperature 98.1 F Temperature Source Oral Pulse Rate [Left Radial] 68 Respiratory Rate 20 Blood Pressure [Right Arm] 203/110 H Blood Pressure Mean [Right Arm] 141 02 Sat by Pulse Oximetry 97 Oxygen Delivery Method Room Air Medical Decision Narrative: 74-year-old presenting with laceration of his left pointer finger. He states he was using a hand-held saw cutting through a branch just prior to arrival and it hit him in his left pointer finger. No other trauma sustained. Came in for further evaluation. States his tetanus is up-to-date. On arrival, very clinically well. 1 cm laceration across the palmar aspect of the first phalanx of his left pointer finger. Neurovascularly intact, range of motion intact, clean wound. Because uncomplicated laceration, no x-rays were deemed necessary at this time. Patient was anesthetized with 1% lidocaine, direct pressure for hemostasis. Irrigated extensively. 3 simple interrupted sutures using 3-0 nylon were used to close the wound. Because patient at baseline without signs or symptoms of clinical decompensation, deemed appropriate for discharge. I discussed my clinical impression with patient and answered all questions. At this time, the evidence for any other entities in the differential is insufficient to warrant any further testing or ED observation. This was explained as well. Advisory was given that persistent or worsening symptoms require further evaluation. I confirmed the understanding of this discussion. Research Editor disclaimer Much of this encounter note is an electronic central communications specialist spoken language to printed text. Electronic central communications specialist of the spoken language may permit errors. Although I have reviewed the note, some errors may still exist. Procedures Laceration Laceration 1: Site: finger Side (If applicable): left Size (cm): 1 Description: irregular Depth: involves subcutaneous layer Local Anesthetic: lidocaine 1% Amount of anesthesia used (mL): 5 Pre-repair: wound explored, irrigated extensively and deep structures intact Skin layer closed with: nylon Size (cm): 3-0 Number of sutures: 3 Technique: simple, interrupted Critical Care Critical Care Time Critical Care Time: No
[2025-01-14 10:29] VITALS: BP 180/84; PULSE 84; RESP 20; TEMP 37.1; O2SAT 97
== END 2025-01-14 10:30 | disposition home or self-care (01) ==
PROVIDERS: Emergency Provider Emergency Medicine; PCP Family Medicine
DX: S61.211A Laceration without foreign body of left index finger without damage to nail, initial encounter (principal); W29.3XXA Contact with powered garden and outdoor hand tools and machinery, initial encounter
CPT/HCPCS: 12001; 99283

== ENCOUNTER 2025-05-14 09:50 | Outpatient (CLI) | payer MEDICARE, OTHER, SELFPAY ==
--- OUTSIDE RECORDS SUMMARY | 2025-05-14 09:56 | XMS_ITS | Clinical Summary ---
Author Organization [facility] Address [address] [place] [address] Care Team Providers Care Parking Meter Collector Name Role Phone Adrien Ponce MD Primary Care Provider + Allergies Active Allergy Reactions Criticality Noted Date Comments 2,4-D Dimethylamine Other (See Comments) Low 06/20/2018 weigh risk/benefit in myasthenia gravis patient Amlodipine Unknown - High Severity High 06/14/2022 Beta Adrenergic Blockers Other (See Comments) Low 06/20/2018 weigh risk/benefit in myasthenia gravis patient Diltiazem Unknown - High Severity High 06/14/2022 Magnesium Sulfate Other (See Comments) Low 06/20/2018 weigh risk/benefit in myasthenia gravis patient Medications pyridostigmine (MESTINON) 60 MG tablet Take 1 tablet by mouth 3 (Three) Times a Day. Active carvedilol (COREG) 6.25 MG tablet Take 1 tablet by mouth 2 (Two) Times a Day With Meals. 12/07/2021 Active mycophenolate (CELLCEPT) 500 MG tablet Take 1 tablet by mouth 3 (Three) Times a Day. 10/04/2021 Active CRANBERRY EXTRACT PO Take by mouth. Active Coenzyme Q10 (COQ10 PO) Take by mouth Daily. Active Lactobacillus (PROBIOTIC ACIDOPHILUS PO) Take by mouth. Active acetaminophen (TYLENOL) 500 MG tablet Take 1 tablet by mouth Every 6 (Six) Hours As Needed for Mild Pain. Active atorvastatin (LIPITOR) 20 MG tabletIndications :Hypercholesterol emia Take 1 tablet by mouth Daily. 90 tablet 3 01/10/2025 Active losartan-hydrochl orothiazide (HYZAAR) 100-25 MG per tabletIndications :Essential hypertension Take 1 tablet by mouth Daily. 90 tablet 3 01/10/2025 Active fexofenadine-pseu doephedrine (Ava-D Allergy & Congestion) 60-120 MG per 12 hr tabletIndications :Non-seasonal allergic rhinitis due to pollen Take 1 tablet by mouth Daily. 90 tablet 1 02/20/2025 Active Active Problems Problem Noted Date Diagnosed Date Urge incontinence 02/16/2023 OAB (overactive bladder) 02/16/2023 Lower urinary tract symptoms (LUTS) 02/16/2023 Thoracic aortic aneurysm without rupture 023 Essential hypertension 01/05/2022 Hypercholesterolemia 01/05/2022 Myasthenia gravis 01/05/2022 Overview (01/05/2022): Neurologist: Dr. Judy Peralta--[facility], Drs. Makenna Claudio-- Neurology. Neurology prescribes monthly IVIG infusions at [facility]. Patient requires monthly CBCs Non-seasonal allergic rhinitis due to pollen High frequency hearing loss, right 01/05/2022 Chronic low back pain without sciatica Encounters Date Type Department Care Team Description 02/20/2025 Refill [facility] [address] [place] [address] Adrien Ponce MD Non-seasonal allergic rhinitis due to pollen from Last 3 Months Immunizations Immunization Administration Dates Next Due Arexvy (RSV, Adults 60+ yrs) 05/08/2023 COVID-19 (MODERNA) 1st,2nd,3 rd Dose Monovalent 10/25/2021,05/31/2021,09/25/2020,2020 COVID-19 (MODERNA) BIVALENT 12+YRS 04/27/2022 COVID-19 (UNSPECIFIED) 03/24/2024 Fluzone High-Dose 65+YRS 04/08/2024,04/19/2016 Fluzone High-Dose 65+yrs 04/13/2023,05/10/2022,0 04/19/2016 Gamma Globulin 06/22/2018, 8,06/20/2018,2017,06/18/2018 Pneumococcal, Unspecified 04/27/2016 Rho (D) Immune Globulin 06/22/2018,06/21,06/20/2018,2017,06/18/2018 Shingrix 04/18/2018,01/26/2018 Family History Medical History Relation Name Comments Asthma Father Severiano Sr. Heart disease Father Severiano Sr. Vision loss Father Severiano Ingram. Arthritis Mother Ailyn Cancer Paternal Aunt Afshan Shaw breast cancer Cancer Sister 1 Maria Antonia Shaw Breast canc er Cancer Sister 2 Cata Shaw breast cancer Relation Name Status Comments Father Severiano Ingram. Mother Ailyn Paternal Aunt Afshan Shaw Sister 1 Maria Antonia Shaw Sister 2 Cata Shaw Social History Tobacco Use Types Packs/Day Years Used Date Smoking Tobacco: Former Cigarettes 1 10 0 07/24/1964 - 07/24/1974 Pipe Passive Smoke Exposure: Never Smokeless Tobacco: Never Tobacco Cessation:Counseling Given: Not Answered Alcohol Use Standard Drinks/Week Comments Yes 2 (1 standard drink = 0.6 oz pur e alcohol) PHQ-2 Answer Date Recorded Retired PHQ-9: Brief Depression Severity Measure Score 0 07/11/2023 PHQ-2 Answer Date Recorded Patient Health Questionnaire-2 Score 0 01/10/2025 Sex and Gender Information Value Date Recorded Sex Assigned at Male 01/03/2025 8:23 AM EDT Legal Sex Male 12:46 PM EDT Gender Identity Not on file Sexual Orientation Straight 01/03/2025 8: 23 AM EDT Last Filed Vital Signs Vital Sign Reading Time Taken Comments Blood Pressure 130/70 01/10/2025 8:23 AM EDT Pulse 45 01/10/2025 8:23 AM EDT Temperature 36.7 C (98 F) 01/10/2025 8:23 AM EDT Respiratory Rate 20 01/10/2025 8:23 AM EDT Oxygen Saturation 99% 01/10/2025 8:23 AM EDT Inhaled Oxygen Concentration - - Weight 91.4 kg (201 lb 9.6 oz) 01/10/2025 8:23 A M EDT Height 179.1 cm (5' 10.51 ) 01/10/2025 8:23 AM E DT Body Mass Index 28.51 01/10/2025 8:23 AM EDT Plan of Treatment Upcoming Encounters Date Type Department Care Team (Late st Contact Info) Description 07/14/2025 8:45 AM EST Office Visit [facility] [address] [address] Adrien Ponce MD [address] [place] [address] Health Maintenance Due Date Last Done Comments TDAP/TD VACCINES (1 - Tdap) 01/22/1967 COLOGUARD 01/22/1993 COLON CANCER SCREENING 5 YEA R SIGMOIDOSCOPY 01/22/1993 COLONOSCOPY 01/22/1993 CT COLONOGRAPHY 01/22/1993 FECAL OCCULT BLOOD TEST 01/22/1993 FIT Testing (1 year) 07/21/2024 07/21/2023 INFLUENZA VACCINE 02/21/2025 04/08/2024, , 05/10/2022, Additional history exists COVID-19 Vaccine (8 - Modern a risk season) 2025 03/24/2024, 04/22/2023, 04/27/2022, Additional history exists ANNUAL WELLNESS VISIT 07/12/2025 07/12/2024 , 07/12/2024, 07/11/2023, Additional history exists LIPID PANEL 01/10/2026 01/10/2025, 12/23, 01/19/2023, Additional history exists Pneumococcal Vaccine 50+ Discontinued 04/27/2016 ZOSTER VACCINE Completed 04/18/2018, 01/26/2018 HEPATITIS C SCREENING Completed 06/29/2018 RSV Vaccine - Adults Completed 05/08/2023 COLORECTAL CANCER SCREENING Discontinued Procedures Procedure Name Priority Date/Time Associated Diagnosis Comments LIPID PANEL Routine 01/10/2025 9:02 AM EDT Hypercholesterolemia Essential hypertension from Last 3 Months or Most Recently Relevant to Health Maintenance Results * Lipid Panel (01/10/2025 9:02 AM EDT) Total Cholesterol 132 0 - 200 mg/dL [facility] Comment: Cholesterol Reference Ranges (U.S. Department of Health and Human Services ATP III Classifications) Desirable <200 mg/dL Borderline High 200-239 mg/dL High Risk >240 mg/dL Triglyceride Reference Ranges (U.S. Department of Health and Human Services ATP III Classifications) Normal <150 mg/dL Borderline High 150-199 mg/dL High 200-499 mg/dL Very High >500 mg/dL HDL Reference Ranges (U.S. Department of Health and Human Services ATP III Classifications) Low <40 mg/dl (major risk factor for CHD) High >60 mg/dl ('negative' risk factor for CHD) LDL Reference Ranges (U.S. Department of Health and Human Services ATP III Classifications) Optimal <100 mg/dL Near Optimal 100-129 mg/dL Borderline High 130-159 mg/dL High 160-189 mg/dL Very High >189 mg/dL LDL is calculated using the NIH LDL-C calculation. Triglycerides 119 0 - 150 mg/dL [facility] HDL Cholesterol 51 40 - 60 mg/dL [facility] VLDL Cholesterol Ricky 21 5 - 40 mg/dL [facility] LDL Chol Calc (NIH) 60 0 - 100 mg/dL [facility] Blood 01/10/2025 9:02 AM EDT 01/10/2025 Narrative [facility] - 01/10/2025 8:09 PM EDT Performed at: [address] [place] [id number] Dance Therapist: Ariel Verma MD, Phone: [phone] Patient Fasting: Y us Adrien Ponce MD LAB BLOOD ORDERABLES Fin al Result [facility] [employer] [facility]) [address] [place] [address], [facility] [address] [place] [address], from Last 3 Months or Most Recently Relevant to Health Maintenance Insurance [employer] MED[employer]ARE [employer]VANTAGE PPO Advance Directives Documents on File Type Date Recorded Patient Shot Polisher And Inspector Expl anation LIVING WILL - SCAN 08/27/2021 11:46 AM [facility] Care Teams Parking Meter Collector Relationship Specialty Start Date End Date Adrien Ponce MD PCP - General Family Medicine 01/31/17
--- OUTSIDE RECORDS SUMMARY | 2025-05-14 09:56 | XMS_ITS | Clinical Summary ---
Author Organization [facility] Address [address] [place] [address] Care Team Providers Care Parts Advisor Name Role Phone Adrien Ponce MD Primary Care Provider [phone] Adrien Claudio MD Unavailable [phone] Allergies Active Allergy Reactions Criticality Noted [...] a day. 270 tablet 3 07/02/2024 Active Efgartigimod wwbb-Ohybvd-xwj c (Vyvgart Hytrulo) [id number] MG-UNT/5ML solution prefilled syringeIndicati ons:Myasthenia gravis Inject 1 Syringe under the skin every 7 days. 20 mL 2 02/10/2025 Active Active Problems Problem Noted Date Diagnosed Date Myasthenia gravis 01/11/2021 Carpal tunnel syndrome 06/19/2019 Peripheral neuropathy 06/19/2019 Immunizations Immunization Administration Dates Next Due IG 06/21/2018, 8,06/20/2018,2017,06/18/2018 Influenza, high-dose, quadrivalent 04/19/2016 Moderna COVID-19 Vaccine (Re d Cap) 12+ years 09/25/2020,08/28/2020 Pneumococcal, Unspecified 04/27/2016 Zoster, Recombinant 04/18/2018,01/26/2018 Family [...] Visit [place] [facility] [address] [place] [address] Makenna Arredondo MD [address] [place] [address] Health Maintenance Due Date Last Done Comments [facility]-Depression Screening 1950 [facility]-/Child/Adol SDOH Screenings 1950 [facility]- SDOH Screenings 01/22/1966 [facility]-Adult SDOH Screenings 01/22/1966 [facility]-DTaP,Tdap,and Td Vaccines (1 - Tdap) 01/22/1967 [facility]-Pneumococcal Vaccine: 50+ Years (1 of 1 - PCV) 01/22/1998 04/27/2016 [id number] Vaccine ( season) 2025 04/22/2023, 04/27/2022, 10/25/2021, Additional history exists [facility]-Influenza Vaccine (#1) 03/24/202504/08, 04/13/2023, 05/10/2022, Additional history exists [facility]-Medicare Annual Wellness (AWV) 07/12/2025 07/12/2024, 07/11/2023, 07/07/2022 [facility]-Zoster Vaccines Completed 04/18/2018, 8 [facility]-Hepatitis C Screening Completed 10/12/2020, [facility]-RSV Vaccine: 60+ Years or Completed 05/08/2023 [facility]-Obesity Intervention Completed 025, 12/17/2024, 12/09/2024, Additional [...] Hepatitis C Antibody (10/12/2020 5:20 PM EDT) Robert Hepatitis C Ab NEGATIVE Reference Range: Negative SUNQUEST 10/12/2020 5:20 PM EDT 10/12/2020 5:23 PM EDT Kit Mercado LAB BLOOD ORDERABLES Final Resul t SUNQUEST from Last 3 Months or Most Recently Relevant to Health Maintenance Insurance [employer] MED[employer] Care Teams Parts Advisor Relationship Specialty Start Date End Date Adrien Ponce MD [address] [place] [address] PCP - General 12/04/20 Adrien Claudio MD [address] [facility] [address] [place] [address] Consulting Physician Neurology 11/15/21
--- OUTSIDE RECORDS SUMMARY | 2025-05-14 09:57 | XMS_ITS | Encounter Summary ---
[facility] Organization [facility] Address [address] [place] [id number] Care Team Providers Care Stone Paver Name Role Phone Adrien Ponce MD Primary Care Provider + Encounter Details Date Type Department Care Team (Late st Contact Info) Description 01/12/2025 Results Follow-Up [facility] [address] [place] [address] Adrien Ponce MD [address] [place] [address] Social History Tobacco Use Types Packs/Day Years Used Date Smoking Tobacco: Former Cigarettes 1 10 0 07/24/1964 - 07/24/1974 Pipe Passive Smoke Exposure: Never Smokeless Tobacco: Never Alcohol Use Standard Drinks/Week Comments Yes 2 [...] Orientation Straight 01/03/2025 8: 23 AM EDT documented as of this encounter Plan of Treatment Upcoming Encounters Date Type Department Care Team (Late st Contact Info) Description 07/14/2025 8:45 AM EST Office Visit [facility] [address] [place] [phone] Adrien Ponce MD [address] [facility], [place] [id number] documented as of this encounter Visit Diagnoses Not on filedocumented in this encounter Care Teams Stone Paver Relationship Specialty Start Date End Date Adrien Ponce MD PCP - General Family Medicine 01/31/17 documented as of this encounter
== END 2025-05-14 23:59 | disposition home or self-care (01) ==
LOC: LAB 09:51
PROVIDERS: PCP Family Medicine; Visit Provider Psychiatry & Neurology Clinical Neurophysiology
DX: G70.00 Myasthenia gravis without (acute) exacerbation (principal)
CPT/HCPCS: 36415